=== PATIENT | female | born 1940 | race Caucasian/White ===

== ENCOUNTER 2020-10-20 16:28 | Inpatient (IN) | payer MEDICARE, OTHER ==
--- NOTE | 2020-10-20 16:56 | EDM.PDOC ---
ED HPI GENERAL MEDICAL PROBLEM - General Stated Complaint: FELL Time Seen by Provider: 10/20/20 16:55 Source of Information: Reports: Patient History Limitations: Reports: No Limitations - History of Present Illness INITIAL COMMENTS - FREE TEXT/NARRATIVE: Patient comes emergency department today from home by ambulance with concerns of a fall and laying on the floor for anywhere from 3 to 4 days. This patient lives at home alone. Approximately 3 to 4 days ago she was in the garage when she was standing up trying to put a new light bulb into a light. When she fell. She did not strike her head. She had no loss of consciousness. She has no head neck or back pain. She was unable to get up off the ground after the fall. She crawled into the house and is laid on the floor for the past 3 to 4 days. She was incontinent of urine and stool. Family had not heard from her so they went to check on her and found her laying on the floor incontinent of urine and stool in the house. Ambulance was summoned and she was brought to the emergency department. Upon arrival the patient complains of a little bit of pain in the back of the head and wonders if she did not strike her head when she hit the ground. She has no headache blurry vision. She denies any neck pain. No visual acuity changes. She complains of pain in her chest with deep breath and movement. No notes of breath or difficulty breathing. No cough or congestion. No fever no chills. She denies abdominal pain. Although she has had a chronic wound in her umbilicus that has been healing for 2 to 3 years. She denies any paresthesias of her upper or lower extremities. She denies any pain in her back. She denies any hematuria dysuria or urinary frequency. NO COVID exposure no COVID symptoms. Bilateral Chest Pain Score (Numeric/FACES): 7 - Related Data Allergies Allergy/AdvReac Type Severity Reaction Status Date / Time aspirin Allergy Nose Bleeds Verified 09/18/16 06:57 Home Meds: Home Meds FLUoxetine [PROzac] 40 mg PO DAILY 09/12/16 [History] Ibuprofen 200 mg PO DAILY PRN 09/12/16 [History] Multivitamin [Daily Multiple Vitamin] 1 tab PO DAILY 09/12/16 [History] Simvastatin [Zocor] 40 mg PO BEDTIME 09/12/16 [History] metFORMIN HCl [Metformin HCl] 850 mg PO BID 09/12/16 [History] Cyanocobalamin (Vitamin B-12) [B-12] 1,000 mcg PO DAILY 10/20/20 [History] Diclofenac Sodium [Voltaren] 75 mg PO BID PRN 10/20/20 [History] Metoprolol Succinate [Toprol XL 100mg] 100 mg PO DAILY 10/20/20 [History] Multivitamin [Multi-Day Vitamins] 1 tab PO DAILY 10/20/20 [History] lisinopriL [Lisinopril] 10 mg PO DAILY 10/20/20 [History] Past Medical History HEENT History: Reports: Cataract, Impaired Vision Cardiovascular History: Reports: High Cholesterol Respiratory History: Reports: Other (See Below) Other Respiratory History: EMPHYSEMA Gastrointestinal History: Reports: Colon Polyp, Diverticulosis, Hemorrhoids Genitourinary History: Reports: None NP History: Reports: Musculoskeletal History: Reports: Fracture, Osteoporosis Other Musculoskeletal History: HX R FOOT FX Neurological History: Reports: Neuropathy, Diabetic Psychiatric History: Reports: Anxiety, Depression Endocrine/Metabolic History: Reports: Diabetes, Type II, Obesity/BMI 30+ Other Hematologic History: VIT D DEFICIENCY Oncologic (Cancer) History: Reports: None - Past Surgical History Female Surgical History: Reports: Tubal Ligation Other Musculoskeletal Surgeries/Procedures:: UMBILICAL HERNIA REPAIR Social & Family History - Caffeine Use Caffeine Use: Reports: Coffee ED ROS GENERAL - Review of Systems Review Of Systems: Comprehensive ROS is negative, except as noted in HPI. ED EXAM, GENERAL - Physical Exam Exam: See Below Free Text/Narrative:: She is incontinent of urine and stool on arrival. Exam Limited By: No Limitations General Appearance: Alert, WD/WN, No Apparent Distress Eye Exam: Bilateral Eye: EOMI, PERRL Ears: Normal External Exam, Normal TMs Nose: Normal Inspection Throat/Mouth: No: Normal Inspection (Noted in the lip section), Normal Lips (Her lips are very dried and cracked with quite a bit of dried blood on them. Her oromucosa is very dry as well. There is no bleeding in the oropharynx.) Head: Normocephalic. No: Atraumatic (She has a small hematoma on the posterior aspect of the skull. No crepitus bony deformities.), Facial Swelling, Facial Tenderness, Sinus Tenderness Neck: Normal Inspection, Supple, Non-Tender, Full Range of Motion, Other (Patient did have a c-collar in place upon arrival. Palpation on the posterior midline spine under the c-collar does not elicit any bony deformity step-offs or point tenderness. Patient denies any neck pain. She is able to flex and extend and rotate without any pain. She has no paresthesias. The neck was cleared with Nexus criteria.). No: Tender Lateral, Tender Midline Respiratory/Chest: No Respiratory Distress, Lungs Clear, Normal Breath Sounds. No: Chest Non-Tender (She does have some generalized tenderness along the sternum on palpation as well as the lateral aspects in the mid axillary line of the bilateral chest. There is no subcutaneous emphysema. No bruising ecchymosis or bony deformity. There is no flail segments.) Cardiovascular: Normal Peripheral Pulses, Regular Rate, Rhythm, Tachycardia Peripheral Pulses: 2+: Radial (L), Radial (R), Posterior Tibial (L), Posterior Tibial (R), Dorsalis Pedis (L), Dorsalis Pedis (R) GI/Abdominal: Normal Bowel Sounds, Soft, Non-Tender. No: Other (Her umbilicus has an area of excoriation and what appears to be a type of yeast infection on the superficial aspect of the umbilicus. There is also some tissue granulation in the central canal of the umbilicus that is nonerythematous. There is no discharge. There is no swelling or exudate. No smell.) Back Exam: Normal Inspection, Full Range of Motion, Other (There is no bruising swelling ecchymosis bony deformities or step-offs or signs of trauma the posterior aspect.). No: CVA Tenderness (L), CVA Tenderness (R), Paraspinal Tenderness, Vertebral Tenderness Extremities: Normal Range of Motion, Normal Capillary Refill. No: Normal Inspection (The patient has quite a bit of bruising on the left elbow left shoulder left hip lateral and anterior aspect bruising to the right hip and right elbow as well. This is in multiple stages of healing.) Neurological: Alert, Oriented, CN II-XII Intact, Normal Cognition, Normal Reflexes, No Motor/Sensory Deficits Psychiatric: Normal Affect, Normal Mood Skin Exam: Dry, Intact, Cool, Pallor Course - Vital Signs Last Recorded V/S: Last Vital Signs Temp 96.9 F 10/20/20 22:00 Pulse 90 10/20/20 22:00 Resp 18 10/20/20 22:00 BP 110/60 10/20/20 22:00 Pulse Ox 91 L 10/20/20 22:00 - Orders/Labs/Meds Orders: Active Orders 24 hr Category Date Time Status CULTURE URINE [RM] Stat Lab 10/20/20 17:45 Received MYOGLOBIN, URINE Stat Lab 10/20/20 17:45 Received Medication Orders Acetaminophen (Tylenol) 650 mg PO Q4H PRN PRN Reason: Pain (Mild 1-3)/fever Last Admin: 10/20/20 21:39 Dose: 650 mg Documented by: ABEL Fluoxetine HCl (Prozac) 40 mg PO DAILY [facility] Lactated Ringer's (Ringers, Lactated) 1,000 mls @ 100 mls/hr IV ASDIRECTED [facility] Last Admin: 10/20/20 21:12 Dose: 100 mls/hr Documented by: ABEL Lisinopril (Prinivil) 10 mg PO DAILY [facility] Metoprolol Succinate (Toprol Xl) 100 mg PO DAILY [facility] Labs: Laboratory Tests 10/20/20 10/20/20 10/20/20 Range/Units 16:46 17:03 17:20 WBC 13.3 H (4.0-10.0) x10^3/uL RBC 4.38 (4.00-5.50) x10^6/uL Hgb 13.2 (12.0-16.0) g/dL Hct 39.2 (33.0-47.0) % MCV 89.5 (78.0-93.0) fL MCH 30.1 (26.0-32.0) pg MCHC 33.7 (32.0-36.0) g/dL RDW Coeff of Kina 12.7 (10.0-15.0) % Plt Count 240 (130-400) x10^3/uL Add Manual Diff Yes Neutrophils % (Manual) 88 H (50-80) % Band Neutrophils % 2 (0-6) % Lymphocytes % (Manual) 4 L (25-50) % Monocytes % (Manual) 6 (2-11) % Platelet Estimate Adequate PT (9.5-12.3) SEC INR (2.0-3.5) APTT (25.6-32.8) SEC Sodium (136-145) mmol/L Potassium (3.5-5.1) mmol/L Chloride (98-107) mmol/L Carbon Dioxide (21-32) mmol/L Anion Gap (5-15) mmol/L BUN (7-18) mg/dL Creatinine (0.55-1.02) mg/dL Est Cr Clr Drug Dosing Estimated GFR (MDRD) Glucose (74-106) mg/dL POC Glucose 162 H (74-106) mg/dL Lactic Acid (0.4-2.0) mmol/L Calcium (8.5-10.1) mg/dL Corrected Calcium (8.5-10.1) mg/dL Magnesium (1.8-2.4) mg/dL Total Bilirubin (0.2-1.0) mg/dL AST (15-37) U/L ALT (14-59) U/L Alkaline Phosphatase (46-116) U/L Creatine Kinase (26-192) U/L Troponin I (<=0.056) ng/mL C-Reactive Protein (<=0.9) mg/dL Total Protein (6.4-8.2) g/dL Albumin (3.4-5.0) g/dL Globulin Albumin/Globulin Ratio Lipase (73-393) U/L Urine Color (YELLOW) Urine Appearance (CLEAR) Urine pH (5.0-8.0) Ur Specific [place] Urine Protein (NEGATIVE) mg/dL Urine Glucose (UA) (NEGATIVE) mg/dL Urine Ketones (NEGATIVE) mg/dL Urine Occult Blood (NEGATIVE) Urine Nitrite (NEGATIVE) Urine Bilirubin (NEGATIVE) Urine Urobilinogen (0.2) EU/dL Ur Leukocyte Esterase (NEGATIVE) U Hyaline Cast (Auto) Urine RBC (NOT SEEN) /HPF Urine WBC (NOT SEEN) /HPF Ur Squamous Epith Cells (NEGATIVE) /HPF Urine Bacteria (NEGATIVE) /HPF Urine Mucus (NEGATIVE) /LPF SARS CoV-2 RNA Rapid YAMILE Negative (NEGATIVE) 10/20/20 10/20/20 10/20/20 Range/Units 17:20 17:20 17:20 WBC (4.0-10.0) x10^3/uL RBC (4.00-5.50) x10^6/uL Hgb (12.0-16.0) g/dL Hct (33.0-47.0) % MCV (78.0-93.0) fL MCH (26.0-32.0) pg MCHC (32.0-36.0) g/dL RDW Coeff of Kina (10.0-15.0) % Plt Count (130-400) x10^3/uL Add Manual Diff Neutrophils % (Manual) (50-80) % Band Neutrophils % (0-6) % Lymphocytes % (Manual) (25-50) % Monocytes % (Manual) (2-11) % Platelet Estimate PT 11.2 (9.5-12.3) SEC INR 1.0 L (2.0-3.5) APTT 23.7 L (25.6-32.8) SEC Sodium 145 (136-145) mmol/L Potassium 3.7 (3.5-5.1) mmol/L Chloride 105 (98-107) mmol/L Carbon Dioxide 27 (21-32) mmol/L Anion Gap 16.7 H (5-15) mmol/L BUN 50 H (7-18) mg/dL Creatinine 0.8 (0.55-1.02) mg/dL Est Cr Clr Drug Dosing TNP Estimated GFR (MDRD) > 60 Glucose 192 H (74-106) mg/dL POC Glucose (74-106) mg/dL Lactic Acid 1.4 (0.4-2.0) mmol/L Calcium 8.3 L (8.5-10.1) mg/dL Corrected Calcium 9.26 (8.5-10.1) mg/dL Magnesium 1.6 L (1.8-2.4) mg/dL Total Bilirubin 0.8 (0.2-1.0) mg/dL AST 62 H (15-37) U/L ALT 73 H (14-59) U/L Alkaline Phosphatase 75 (46-116) U/L Creatine Kinase 1496 H* (26-192) U/L Troponin I 0.056 (<=0.056) ng/mL C-Reactive Protein 14.2 H (<=0.9) mg/dL Total Protein 6.5 (6.4-8.2) g/dL Albumin 2.8 L (3.4-5.0) g/dL Globulin 3.7 Albumin/Globulin Ratio 0.76 Lipase 82 (73-393) U/L Urine Color (YELLOW) Urine Appearance (CLEAR) Urine pH (5.0-8.0) Ur Specific [place] Urine Protein (NEGATIVE) mg/dL Urine Glucose (UA) (NEGATIVE) mg/dL Urine Ketones (NEGATIVE) mg/dL Urine Occult Blood (NEGATIVE) Urine Nitrite (NEGATIVE) Urine Bilirubin (NEGATIVE) Urine Urobilinogen (0.2) EU/dL Ur Leukocyte Esterase (NEGATIVE) U Hyaline Cast (Auto) Urine RBC (NOT SEEN) /HPF Urine WBC (NOT SEEN) /HPF Ur Squamous Epith Cells (NEGATIVE) /HPF Urine Bacteria (NEGATIVE) /HPF Urine Mucus (NEGATIVE) /LPF SARS CoV-2 RNA Rapid YAMILE (NEGATIVE) 10/20/20 Range/Units 17:45 WBC (4.0-10.0) x10^3/uL RBC (4.00-5.50) x10^6/uL Hgb (12.0-16.0) g/dL Hct (33.0-47.0) % MCV (78.0-93.0) fL MCH (26.0-32.0) pg MCHC (32.0-36.0) g/dL RDW Coeff of Kina (10.0-15.0) % Plt Count (130-400) x10^3/uL Add Manual Diff Neutrophils % (Manual) (50-80) % Band Neutrophils % (0-6) % Lymphocytes % (Manual) (25-50) % Monocytes % (Manual) (2-11) % Platelet Estimate PT (9.5-12.3) SEC INR (2.0-3.5) APTT (25.6-32.8) SEC Sodium (136-145) mmol/L Potassium (3.5-5.1) mmol/L Chloride (98-107) mmol/L Carbon Dioxide (21-32) mmol/L Anion Gap (5-15) mmol/L BUN (7-18) mg/dL Creatinine (0.55-1.02) mg/dL Est Cr Clr Drug Dosing Estimated GFR (MDRD) Glucose (74-106) mg/dL POC Glucose (74-106) mg/dL Lactic Acid (0.4-2.0) mmol/L Calcium (8.5-10.1) mg/dL Corrected Calcium (8.5-10.1) mg/dL Magnesium (1.8-2.4) mg/dL Total Bilirubin (0.2-1.0) mg/dL AST (15-37) U/L ALT (14-59) U/L Alkaline Phosphatase (46-116) U/L Creatine Kinase (26-192) U/L Troponin I (<=0.056) ng/mL C-Reactive Protein (<=0.9) mg/dL Total Protein (6.4-8.2) g/dL Albumin (3.4-5.0) g/dL Globulin Albumin/Globulin Ratio Lipase (73-393) U/L Urine Color Yellow (YELLOW) Urine Appearance Slightly cloudy H (CLEAR) Urine pH 6.0 (5.0-8.0) Ur Specific [place] >=1.030 Urine Protein 100 H (NEGATIVE) mg/dL Urine Glucose (UA) Negative (NEGATIVE) mg/dL Urine Ketones 80 H (NEGATIVE) mg/dL Urine Occult Blood Moderate H (NEGATIVE) Urine Nitrite Negative (NEGATIVE) Urine Bilirubin Moderate H (NEGATIVE) Urine Urobilinogen 0.2 (0.2) EU/dL Ur Leukocyte Esterase Trace H (NEGATIVE) U Hyaline Cast (Auto) Many Urine RBC 5-10 H (NOT SEEN) /HPF Urine WBC 0-5 (NOT SEEN) /HPF Ur Squamous Epith Cells Many H (NEGATIVE) /HPF Urine Bacteria Not seen (NEGATIVE) /HPF Urine Mucus Rare H (NEGATIVE) /LPF SARS CoV-2 RNA Rapid YAMILE (NEGATIVE) Meds: Medications Generic Name Dose Route Start Last Admin Trade Name Terry PRN Reason Stop Dose Admin Acetaminophen 650 mg 10/20/20 20:43 10/20/20 21:39 Tylenol PO 650 mg Q4H PRN Administration Pain (Mild 1-3)/fever Fluoxetine HCl 40 mg 10/21/20 08:00 Prozac PO DAILY [facility] Lactated Ringer's 1,000 mls @ 100 mls/hr 10/20/20 21:00 10/20/20 21:12 Ringers, Lactated IV 100 mls/hr ASDIRECTED [facility] Administration Lisinopril 10 mg 10/21/20 08:00 Prinivil PO DAILY [facility] Metoprolol Succinate 100 mg 10/21/20 08:00 Toprol Xl PO DAILY [facility] Discontinued Medications Generic Name Dose Route Start Last Admin Trade Name Terry PRN Reason Stop Dose Admin Lactated Ringer's 1,000 mls @ 150 mls/hr 10/20/20 17:15 10/20/20 17:35 Ringers, Lactated IV 150 mls/hr ASDIRECTED [facility] Administration Metoprolol Tartrate 25 mg 10/20/20 20:06 10/20/20 20:09 Lopressor PO 10/20/20 20:07 25 mg NOW STA Administration - Radiology Interpretation Free Text/Narrative:: CT of the head per radiology shows no acute intracranial findings. - Re-Assessments/Exams Free Text/Narrative Re-Assessment/Exam: 10/21/20 Patient initially was given a liter bolus of normal saline from the ambulance. I then started lactated Ringer's at 150 mils an hour. Laboratory evaluation was completed. C-spine was cleared with Nexus criteria she did not have any neck pain. Laboratory evaluation shows a WBC of 13.3, CMP with a BUN of 50 and surprisingly a creatinine of 0.8 and an anion gap of 16.7. Glucose of 192. Magnesium 1.6. Mild elevation of AST and ALT with a normal T bili. Creatinine kinase at 1496. Troponin 0 0.056. She did have an EKG with that was completed upon arrival. She had no ST elevation or depression when reviewed extemporaneously by myself. She does not have any chest pain. Although this troponin is within the normal limits this is most likely due to the rhabdomyolysis that she has from the laying on the floor that she has done for the past couple of days. CRP is 14.2 with a normal lactic acid at 1.4. This is most likely inflammatory response due to the laying on the ground for the past couple of days. Urinalysis shows some protein ketones which is most likely due to her poor oral intake over the past couple of days. She also has some blood in her urine which is most likely due to the rhabdomyolysis. Urine myoglobin is pending. Covid test is negative for admission. Due to the patient deconditioning state after the fall and the presence of rhabdo. I called and spoke with Dr. Rosado HPI ER COURSE findings and concerns were relayed to her verbally over the phone. Her questions were answered and she accepted the patient in admission to the floor. She did have some tachycardia while in the ED that did not resolve with fluid and she is clearly dehydrated but she has also not taken her metoprolol while laying on the floor and may be going through some B Rohan withdrawal as well. Metoprolol Tartrate 25mg PO given in the ED as well. Departure - Departure Time of Disposition: 18:30 Disposition: Admitted As Inpatient 65 Clinical Impression: Dehydration Rhabdomyolysis Qualifiers: Rhabdomyolysis type: traumatic Encounter type: initial encounter Qualified Code(s): T79.6XXA - Traumatic ischemia of muscle, initial encounter Fall with injury Qualifiers: Encounter type: initial encounter Qualified Code(s): W19.XXXA - Unspecified fall, initial encounter - Discharge Information Sepsis Event Note (ED) - Focused Exam Vital Signs: Vital Signs Temp Pulse Resp BP Pulse Ox 10/20/20 16:30 97.2 F 112 H 24 H 194/105 H 93 L - My Orders Last 24 Hours: My Active Orders 10/20/20 17:45 CULTURE URINE [RM] Stat MYOGLOBIN, URINE Stat - Assessment/Plan Last 24 Hours: My Active Orders 10/20/20 17:45 CULTURE URINE [RM] Stat MYOGLOBIN, URINE Stat
[2020-10-20] MEDS ORDERED: Lactated Ringers 1,000 ML IV SCH ×2 (17:15→21:00)
[2020-10-20 17:45] LABS: PTT,PARTIAL THROMBOPLSTIN TIME 23.7 SEC (25.6-32.8)
[2020-10-20 17:59] LABS: ANION GAP 16.7 mmol/L (5-15); CHLORIDE,CL 105 mmol/L (98-107); SODIUM,NA 145 mmol/L (136-145)
--- NOTE | 2020-10-20 18:25 | CT ---
[id number] CT/CT Head WO IV EXAM: CT Head WO IV CLINICAL DATA: FALL HEAD INJURY COMPARISON STUDY: None FINDINGS: No intracranial hemorrhage, extra-axial fluid collection, mass, or acute ischemia. Generalized parenchymal atrophy with scattered areas of nonspecific white matter disease, commonly seen as sequela of chronic microvascular ischemia. Soft tissues are unremarkable. Mild mucosal thickening without evidence of aggressive sinusitis.. IMPRESSION: No acute intracranial findings. Last Tanner DO 10/20/20 1824 Thank you for allowing us to participate in the care of your patient.
[2020-10-20] MEDS ORDERED: Metoprolol Tartrate 25 MG Tab PO STA (20:06)
--- NOTE | 2020-10-20 20:51 | PCM.HP.2 ---
H&P History of Present Illness - General Date of Service: 10/20/20 Admit Problem/Dx: Admission Diagnosis/Problem Admission Diagnosis/Problem Rhabdomyolysis Source of Information: Patient History Limitations: Reports: No Limitations - History of Present Illness Initial Comments - Free Text/Narative: Ms. Zamora is an 80 yo female with PMH of HTN, emphysema, DM, hyperlipidemia, B12 deficiency, depression, and anxiety who was brought to the ER via EMS for evaluation following a fall a few days ago. The patient states that she fell 1 week ago but her kids stated that they had not heard from her for 3 days. She states she was in the garage changing a lightbulb when she fell backwards off her ladder. She was on the bottom rung when she fell. She did not lose consciousness. She was able to crawl from the garage into her house but then was not able to get up. When her kids had not heard from her for 3 days, then called the ambulance to go check on her. She was brought to the ER for further evaluation. She is having discomfort in both sides of her chest, which she feels is from the fall and the crawling. No internal chest pain and no shortness of breath. She has multiple bruises but has no other pain. She has not had any headaches. No unilateral weakness, numbness, or tingling. No neck pain or stiffness. Bilateral Chest Pain Score (Numeric/FACES): 7 - Related Data Allergies/Adverse Reactions: Allergies Allergy/AdvReac Type Severity Reaction Status Date / Time aspirin Allergy Nose Bleeds Verified 09/18/16 06:57 Home Medications: Home Meds FLUoxetine [PROzac] 40 mg PO DAILY 09/12/16 [History] Ibuprofen 200 mg PO DAILY PRN 09/12/16 [History] Multivitamin [Daily Multiple Vitamin] 1 tab PO DAILY 09/12/16 [History] Simvastatin [Zocor] 40 mg PO BEDTIME 09/12/16 [History] metFORMIN HCl [Metformin HCl] 850 mg PO BID 09/12/16 [History] Cyanocobalamin (Vitamin B-12) [B-12] 1,000 mcg PO DAILY 10/20/20 [History] Diclofenac Sodium [Voltaren] 75 mg PO BID PRN 10/20/20 [History] Metoprolol Succinate [Toprol XL 100mg] 100 mg PO DAILY 10/20/20 [History] Multivitamin [Multi-Day Vitamins] 1 tab PO DAILY 10/20/20 [History] lisinopriL [Lisinopril] 10 mg PO DAILY 10/20/20 [History] Past Medical History HEENT History: Reports: Cataract, Impaired Vision Cardiovascular History: Reports: High Cholesterol, Hypertension Respiratory History: Reports: COPD Gastrointestinal History: Reports: Colon Polyp, Diverticulosis, Hemorrhoids Genitourinary History: Reports: None 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: Musculoskeletal History: Reports: Fracture, Osteoporosis Other Musculoskeletal History: HX R FOOT FX Neurological History: Reports: Neuropathy, Diabetic Psychiatric History: Reports: Anxiety, Depression Endocrine/Metabolic History: Reports: Diabetes, Type II, Obesity/BMI 30+ Hematologic History: Reports: B12 Deficiency Other Hematologic History: VIT D DEFICIENCY Oncologic (Cancer) History: Reports: None Dermatologic History: Reports: None - Past Surgical History GI Surgical History: Reports: Colonoscopy, Hernia, Abdominal (umbilical) Female Surgical History: Reports: Tubal Ligation Neurological Surgical History: Reports: None Other Musculoskeletal Surgeries/Procedures:: UMBILICAL HERNIA REPAIR Social & Family History - Family History Family Medical History: No Pertinent Family History (patient is adopted; mom from old age and dad from alcohol abuse) - Tobacco Use Tobacco Use Status *Q: Former Tobacco User Second Hand Smoke Exposure: No - Caffeine Use Caffeine Use: Reports: Coffee - Alcohol Use Alcohol Use History: No Alcohol Use in Last Twelve Months: No - Recreational Drug Use Recreational Drug Use: No - Living Situation & Occupation Living situation: Reports: , Alone 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[employer]) H&P Review of Systems - Review of Systems: Review Of Systems: See Below General: Reports: No Symptoms HEENT: Reports: No Symptoms Pulmonary: Reports: No Symptoms Cardiovascular: Reports: No Symptoms Gastrointestinal: Reports: No Symptoms Genitourinary: Reports: No Symptoms Musculoskeletal: Reports: Muscle Pain Skin: Reports: No Symptoms Psychiatric: Reports: No Symptoms Neurological: Reports: No Symptoms Exam - Exam Exam: See Below - Vital Signs Vital Signs: Last Vital Signs Temp 35.8 C L 10/20/20 20:43 Pulse 119 H 10/20/20 20:43 Resp 18 10/20/20 20:43 BP 131/73 10/20/20 20:43 Pulse Ox 95 10/20/20 20:43 Weight: 72.121 kg - Exam General: Alert, Oriented, Cooperative HEENT: Conjunctiva Clear, Hearing Intact, Mucosa Moist & [place], Posterior Pharynx Clear, Pupils Equal, Pupils Reactive, TMs Clear Neck: Supple, Trachea Midline, Full Range of Motion, Other (no midline or paraspinal muscle tenderness to palpation). No: Lymphadenopathy, Thyromegaly Lungs: Clear to Auscultation, Normal Respiratory Effort Cardiovascular: Regular Rhythm, Normal S1, Normal S2, Tachycardia, Other (bilateral chest wall tenderness to palpation without any overlying ecchymosis and no palpable crepitus or deformity) GI/Abdominal Exam: Normal Bowel Sounds, Soft, Non-Tender, No Organomegaly, No Distention, No Mass Extremities: Normal Range of Motion, Non-Tender, No Pedal Edema, Normal Capillary Refill Peripheral Pulses: 2+: Radial (L), Radial (R) Skin: Warm, Dry, Intact, Ecchymosis, Wound (early stage pressure wound) Neuro Extensive - Mental Status: Alert, Normal Mood/Affect, Normal Cognition, Disorientation to Time - Patient Data Lab Results Last 24 hrs: Laboratory Results - last 24 hr 10/20/20 10/20/20 10/20/20 Range/Units 16:46 17:03 17:20 WBC 13.3 H (4.0-10.0) x10^3/uL RBC 4.38 (4.00-5.50) x10^6/uL Hgb 13.2 (12.0-16.0) g/dL Hct 39.2 (33.0-47.0) % MCV 89.5 (78.0-93.0) fL MCH 30.1 (26.0-32.0) pg MCHC 33.7 (32.0-36.0) g/dL RDW Coeff of Kina 12.7 (10.0-15.0) % Plt Count 240 (130-400) x10^3/uL Add Manual Diff Yes Neutrophils % (Manual) 88 H (50-80) % Band Neutrophils % 2 (0-6) % Lymphocytes % (Manual) 4 L (25-50) % Monocytes % (Manual) 6 (2-11) % Platelet Estimate Adequate PT (9.5-12.3) SEC INR (2.0-3.5) APTT (25.6-32.8) SEC Sodium (136-145) mmol/L Potassium (3.5-5.1) mmol/L Chloride (98-107) mmol/L Carbon Dioxide (21-32) mmol/L Anion Gap (5-15) mmol/L BUN (7-18) mg/dL Creatinine (0.55-1.02) mg/dL Est Cr Clr Drug Dosing Estimated GFR (MDRD) Glucose (74-106) mg/dL POC Glucose 162 H (74-106) mg/dL Lactic Acid (0.4-2.0) mmol/L Calcium (8.5-10.1) mg/dL Corrected Calcium (8.5-10.1) mg/dL Magnesium (1.8-2.4) mg/dL Total Bilirubin (0.2-1.0) mg/dL AST (15-37) U/L ALT (14-59) U/L Alkaline Phosphatase (46-116) U/L Creatine Kinase (26-192) U/L Troponin I (<=0.056) ng/mL C-Reactive Protein (<=0.9) mg/dL Total Protein (6.4-8.2) g/dL Albumin (3.4-5.0) g/dL Globulin Albumin/Globulin Ratio Lipase (73-393) U/L Urine Color (YELLOW) Urine Appearance (CLEAR) Urine pH (5.0-8.0) Ur Specific Coldiron Urine Protein (NEGATIVE) mg/dL Urine Glucose (UA) (NEGATIVE) mg/dL Urine Ketones (NEGATIVE) mg/dL Urine Occult Blood (NEGATIVE) Urine Nitrite (NEGATIVE) Urine Bilirubin (NEGATIVE) Urine Urobilinogen (0.2) EU/dL Ur Leukocyte Esterase (NEGATIVE) U Hyaline Cast (Auto) Urine RBC (NOT SEEN) /HPF Urine WBC (NOT SEEN) /HPF Ur Squamous Epith Cells (NEGATIVE) /HPF Urine Bacteria (NEGATIVE) /HPF Urine Mucus (NEGATIVE) /LPF SARS CoV-2 RNA Rapid YAMILE Negative (NEGATIVE) 10/20/20 10/20/20 10/20/20 Range/Units 17:20 17:20 17:20 WBC (4.0-10.0) x10^3/uL RBC (4.00-5.50) x10^6/uL Hgb (12.0-16.0) g/dL Hct (33.0-47.0) % MCV (78.0-93.0) fL MCH (26.0-32.0) pg MCHC (32.0-36.0) g/dL RDW Coeff of Kina (10.0-15.0) % Plt Count (130-400) x10^3/uL Add Manual Diff Neutrophils % (Manual) (50-80) % Band Neutrophils % (0-6) % Lymphocytes % (Manual) (25-50) % Monocytes % (Manual) (2-11) % Platelet Estimate PT 11.2 (9.5-12.3) SEC INR 1.0 L (2.0-3.5) APTT 23.7 L (25.6-32.8) SEC Sodium 145 (136-145) mmol/L Potassium 3.7 (3.5-5.1) mmol/L Chloride 105 (98-107) mmol/L Carbon Dioxide 27 (21-32) mmol/L Anion Gap 16.7 H (5-15) mmol/L BUN 50 H (7-18) mg/dL Creatinine 0.8 (0.55-1.02) mg/dL Est Cr Clr Drug Dosing TNP Estimated GFR (MDRD) > 60 Glucose 192 H (74-106) mg/dL POC Glucose (74-106) mg/dL Lactic Acid 1.4 (0.4-2.0) mmol/L Calcium 8.3 L (8.5-10.1) mg/dL Corrected Calcium 9.26 (8.5-10.1) mg/dL Magnesium 1.6 L (1.8-2.4) mg/dL Total Bilirubin 0.8 (0.2-1.0) mg/dL AST 62 H (15-37) U/L ALT 73 H (14-59) U/L Alkaline Phosphatase 75 (46-116) U/L Creatine Kinase 1496 H* (26-192) U/L Troponin I 0.056 (<=0.056) ng/mL C-Reactive Protein 14.2 H (<=0.9) mg/dL Total Protein 6.5 (6.4-8.2) g/dL Albumin 2.8 L (3.4-5.0) g/dL Globulin 3.7 Albumin/Globulin Ratio 0.76 Lipase 82 (73-393) U/L Urine Color (YELLOW) Urine Appearance (CLEAR) Urine pH (5.0-8.0) Ur Specific [place] Urine Protein (NEGATIVE) mg/dL Urine Glucose (UA) (NEGATIVE) mg/dL Urine Ketones (NEGATIVE) mg/dL Urine Occult Blood (NEGATIVE) Urine Nitrite (NEGATIVE) Urine Bilirubin (NEGATIVE) Urine Urobilinogen (0.2) EU/dL Ur Leukocyte Esterase (NEGATIVE) U Hyaline Cast (Auto) Urine RBC (NOT SEEN) /HPF Urine WBC (NOT SEEN) /HPF Ur Squamous Epith Cells (NEGATIVE) /HPF Urine Bacteria (NEGATIVE) /HPF Urine Mucus (NEGATIVE) /LPF SARS CoV-2 RNA Rapid YAMILE (NEGATIVE) 10/20/20 Range/Units 17:45 WBC (4.0-10.0) x10^3/uL RBC (4.00-5.50) x10^6/uL Hgb (12.0-16.0) g/dL Hct (33.0-47.0) % MCV (78.0-93.0) fL MCH (26.0-32.0) pg MCHC (32.0-36.0) g/dL RDW Coeff of Kina (10.0-15.0) % Plt Count (130-400) x10^3/uL Add Manual Diff Neutrophils % (Manual) (50-80) % Band Neutrophils % (0-6) % Lymphocytes % (Manual) (25-50) % Monocytes % (Manual) (2-11) % Platelet Estimate PT (9.5-12.3) SEC INR (2.0-3.5) APTT (25.6-32.8) SEC Sodium (136-145) mmol/L Potassium (3.5-5.1) mmol/L Chloride (98-107) mmol/L Carbon Dioxide (21-32) mmol/L Anion Gap (5-15) mmol/L BUN (7-18) mg/dL Creatinine (0.55-1.02) mg/dL Est Cr Clr Drug Dosing Estimated GFR (MDRD) Glucose (74-106) mg/dL POC Glucose (74-106) mg/dL Lactic Acid (0.4-2.0) mmol/L Calcium (8.5-10.1) mg/dL Corrected Calcium (8.5-10.1) mg/dL Magnesium (1.8-2.4) mg/dL Total Bilirubin (0.2-1.0) mg/dL AST (15-37) U/L ALT (14-59) U/L Alkaline Phosphatase (46-116) U/L Creatine Kinase (26-192) U/L Troponin I (<=0.056) ng/mL C-Reactive Protein (<=0.9) mg/dL Total Protein (6.4-8.2) g/dL Albumin (3.4-5.0) g/dL Globulin Albumin/Globulin Ratio Lipase (73-393) U/L Urine Color Yellow (YELLOW) Urine Appearance Slightly cloudy H (CLEAR) Urine pH 6.0 (5.0-8.0) Ur Specific [place] >=1.030 Urine Protein 100 H (NEGATIVE) mg/dL Urine Glucose (UA) Negative (NEGATIVE) mg/dL Urine Ketones 80 H (NEGATIVE) mg/dL Urine Occult Blood Moderate H (NEGATIVE) Urine Nitrite Negative (NEGATIVE) Urine Bilirubin Moderate H (NEGATIVE) Urine Urobilinogen 0.2 (0.2) EU/dL Ur Leukocyte Esterase Trace H (NEGATIVE) U Hyaline Cast (Auto) Many Urine RBC 5-10 H (NOT SEEN) /HPF Urine WBC 0-5 (NOT SEEN) /HPF Ur Squamous Epith Cells Many H (NEGATIVE) /HPF Urine Bacteria Not seen (NEGATIVE) /HPF Urine Mucus Rare H (NEGATIVE) /LPF SARS CoV-2 RNA Rapid YAMILE (NEGATIVE) Result Diagrams: 10/20/20 17:20 10/20/20 17:20 Sepsis Event Note - Evaluation Sepsis Screening Result: No Definite Risk - Focused Exam Vital Signs: Vital Signs Temp Temp Pulse Pulse Resp BP BP 10/20/20 20:43 35.8 C L 119 H 18 131/73 10/20/20 20:09 130 H 143/72 H 10/20/20 16:30 36.2 C 112 H 24 H 194/105 H Pulse Ox 10/20/20 20:43 95 10/20/20 20:09 10/20/20 16:30 93 L - Problem List (1) Rhabdomyolysis SNOMED Code(s): 220182396 ICD Code: M62.82 - RHABDOMYOLYSIS Status: Acute Current Visit: Yes Qualifiers: Rhabdomyolysis type: traumatic Encounter type: initial encounter Qualified Code(s): T79.6XXA - Traumatic ischemia of muscle, initial encounter (2) Dehydration SNOMED Code(s): 90560570 ICD Code: E86.0 - DEHYDRATION Status: Acute Current Visit: Yes (3) Fall with injury SNOMED Code(s): 771393254 ICD Code: W19.XXXA - UNSPECIFIED FALL, INITIAL ENCOUNTER Status: Acute Current Visit: Yes Qualifiers: Encounter type: initial encounter Qualified Code(s): W19.XXXA - Unspecified fall, initial encounter (4) Chest wall pain SNOMED Code(s): 650792998 ICD Code: R07.89 - OTHER CHEST PAIN Status: Acute Current Visit: Yes (5) Decubitus skin ulcer SNOMED Code(s): 811438182 ICD Code: L89.90 - PRESSURE ULCER OF UNSPECIFIED SITE, UNSPECIFIED STAGE Status: Acute Current Visit: Yes Qualifiers: Pressure injury location: sacral region Pressure injury stage: stage 1 Qualified Code(s): L89.151 - Pressure ulcer of sacral region, stage 1 (6) SIRS (systemic inflammatory response syndrome) SNOMED Code(s): 118026037 ICD Code: R65.10 - SIRS OF NON-INFECTIOUS ORIGIN W/O ACUTE ORGAN DYSFUNCTION Status: Acute Current Visit: Yes (7) Hypertension SNOMED Code(s): 36647922 ICD Code: I10 - ESSENTIAL (PRIMARY) HYPERTENSION Status: Chronic Current Visit: Yes Qualifiers: Hypertension type: essential hypertension Qualified Code(s): I10 - Essential (primary) hypertension (8) COPD (chronic obstructive pulmonary disease) SNOMED Code(s): 46455025 ICD Code: J44.9 - CHRONIC OBSTRUCTIVE PULMONARY DISEASE, UNSPECIFIED Status: Chronic Current Visit: Yes (9) Hyperlipidemia SNOMED Code(s): 88723880 ICD Code: E78.5 - HYPERLIPIDEMIA, UNSPECIFIED Status: Chronic Current Visit: Yes (10) Diabetes SNOMED Code(s): 59776468 ICD Code: E11.9 - TYPE 2 DIABETES MELLITUS WITHOUT COMPLICATIONS Status: Chronic Current Visit: Yes (11) Depression SNOMED Code(s): 83693305 ICD Code: F32.9 - MAJOR DEPRESSIVE DISORDER, SINGLE EPISODE, UNSPECIFIED Status: Chronic Current Visit: Yes (12) Anxiety SNOMED Code(s): 64836952 ICD Code: F41.9 - ANXIETY DISORDER, UNSPECIFIED Status: Chronic Current Visit: Yes Problem List Initiated/Reviewed/Updated: Yes Orders Last 24hrs: Active Orders 24 hr Category Date Time Status Admission Status [Patient Status] [ADT] Routine ADT 10/20/20 19:01 Active Cardiac Monitoring [RC] CONTINUOUS Care 10/20/20 20:44 Ordered Notify Provider Vital Signs [RC] ASDIRECTED Care 10/20/20 20:44 Ordered Oxygen Therapy [RC] PRN Care 10/20/20 20:43 Ordered Up With Assistance [RC] ASDIRECTED Care 10/20/20 20:43 Ordered VTE/DVT Education [RC] PER UNIT ROUTINE Care 10/20/20 20:43 Ordered Vital Signs [RC] Q4H Care 10/20/20 20:43 Ordered [employer] Diet [DIET] Diet 10/20/20 Breakfast Ordered BASIC METABOLIC PANEL,BMP [CHEM] AM Lab 10/21/20 05:11 Ordered C-REACTIVE PROTEIN [CHEM] AM Lab 10/21/20 05:11 Ordered CBC WITH AUTO DIFF [HEME] AM Lab 10/21/20 05:11 Ordered CREATINE KINASE,CK [CHEM] AM Lab 10/21/20 05:11 Ordered CULTURE URINE [RM] Stat Lab 10/20/20 17:45 Received MAGNESIUM [CHEM] AM Lab 10/21/20 05:11 Ordered MYOGLOBIN, URINE Stat Lab 10/20/20 17:45 Received Acetaminophen [TylenoL] Med 10/20/20 20:43 Ordered 650 mg PO Q4H PRN FLUoxetine [PROzac] Med 10/21/20 08:00 Ordered 40 mg PO DAILY Lactated Ringers @ 100 MLS/HR(1,000ml) Med 10/20/20 21:00 Ordered Lactated Ringers [Ringers, Lactated] 1,000 ml IV ASDIRECTED Resuscitation Status Routine Resus Stat 10/20/20 20:43 Ordered Medication Orders Acetaminophen (Tylenol) 650 mg PO Q4H PRN PRN Reason: Pain (Mild 1-3)/fever Lactated Ringer's (Ringers, Lactated) 1,000 mls @ 100 mls/hr IV ASDIRECTED ANGELIQUE Assessment/Plan Comment:: 80 yo female admitted with mild rhabdomyolysis after sustaining a fall from which she was unable to get up sometime within the past 3 days. #1 Rhabdomyolysis #2 Dehydration - Patient got 2L of IV fluids in the ER. - Given lack of significant urine output to this point, will give gentle IV fluids overnight with LR @ 100 mL/hr. - Recheck CK in the am. #3 Fall with injury #4 Chest wall pain - No major injuries from her fall. - Chest pain is clearly chest wall pain. Low risk for rib fracture based on injury and lack of bruising in that area when she has extensive bruising elsewhere. - Will reassess need for CXR in the am. - Tylenol for pain. - Will hold ibuprofen given #1. #5 Decubitus skin ulcer - Offloading measures and usual wound cares. #6 SIRS - For tachycardia and leukocytosis. - Likely secondary to #1 and #2. - Tachycardia also likely related to missing her metoprolol doses. - Patient has no s/s of infection but will monitor WBC and CRP daily to determine trends. #7 Hypertension - HR and BP elevated on admission. Will give a dose of metoprolol tartrate 25 mg. - Then resume metoprolol and lisinopril in the am. #8 COPD - Patient is not on any medications for this. - Can do nebs if she has any wheezing/shortness of breath. #9 Hyperlipidemia - In light of #1, will hold her statin. #10 Diabetes - Hold metformin. - Will check glucose QID and assess need for insulin tomorrow. #11 Depression #12 Anxiety - Continue prozac. Patient will be admitted to acute - anticipate it will take a couple of days to get her fully volume repleted and to treat her rhabdo. Code status is DNR/DNI - discussed with patient on admission. Suspect we will do lovenox for VTE prophylaxis but will first assess stability of her creatinine in the am.
[2020-10-20] MEDS: Acetaminophen 325 MG Tab PO PRN (21:39)
[2020-10-21] MEDS: FLUoxetine 20 MG Cap PO SCH (08:13)
[2020-10-21] MEDS: Metoprolol Succinate 50 MG Tab.ER PO SCH (08:13)
[2020-10-21] MEDS: Acetaminophen 325 MG Tab PO PRN ×3 (08:13→20:16)
[2020-10-21] MEDS: Lisinopril 10 MG Tab PO SCH (08:13)
[2020-10-21 08:49] LABS: ANION GAP 12.5 mmol/L (5-15)
--- NOTE | 2020-10-21 10:08 | PCM.PN ---
- General Info Date of Service: 10/21/20 Subjective Update: 80 yo female hospital day #2 admitted with rhabdomyolysis after a fall sometime in the preceding 3 days. She states she is feeling ok this morning. She is looking forward to a bath this afternoon. She has some myalgias (including in the chest wall) when she is moving around. At rest, she is having no pain. She is eating well with no vomiting. Had a normal BM this morning. No headache or neurologic symptoms. No chest pain or shortness of breath. Nurse noted some changes around her umbilicus. The patient states this is chronic and has not recently changed. There was discussion of surgery in the past and she had elected not to proceed with that. Nurse also notes changes in her groin of redness. - Review of Systems General: Reports: No Symptoms HEENT: Reports: No Symptoms Pulmonary: Reports: No Symptoms Cardiovascular: Reports: No Symptoms Gastrointestinal: Reports: No Symptoms Genitourinary: Reports: No Symptoms Musculoskeletal: Reports: No Symptoms Skin: Reports: Rash Neurological: Reports: No Symptoms - Patient Data Vitals - Most Recent: Last Vital Signs Temp 35.8 C L 10/21/20 06:00 Pulse 102 H 10/21/20 08:13 Resp 20 10/21/20 06:00 BP 143/71 H 10/21/20 08:13 Pulse Ox 90 L 10/21/20 06:00 Weight - Most Recent: 68.311 kg I&O - Last 24 Hours: Intake & Output 10/20/20 10/21/20 10/21/20 22:59 06:59 14:59 Intake Total 1201 Balance 1201 Lab Results Last 24 Hours: Laboratory Results - last 24 hr 10/20/20 10/20/20 10/20/20 Range/Units 16:46 17:03 17:20 WBC 13.3 H (4.0-10.0) x10^3/uL RBC 4.38 (4.00-5.50) x10^6/uL Hgb 13.2 (12.0-16.0) g/dL Hct 39.2 (33.0-47.0) % MCV 89.5 (78.0-93.0) fL MCH 30.1 (26.0-32.0) pg MCHC 33.7 (32.0-36.0) g/dL RDW Coeff of Kina 12.7 (10.0-15.0) % Plt Count 240 (130-400) x10^3/uL Neut % (Auto) (50.0-80.0) % Lymph % (Auto) (25.0-50.0) % [place] % (Auto) (2.0-11.0) % Eos % (Auto) (0.0-4.0) % Baso % (Auto) (0.2-1.2) % Add Manual Diff Yes Neutrophils % (Manual) 88 H (50-80) % Band Neutrophils % 2 (0-6) % Lymphocytes % (Manual) 4 L (25-50) % Monocytes % (Manual) 6 (2-11) % Platelet Estimate Adequate PT (9.5-12.3) SEC INR (2.0-3.5) APTT (25.6-32.8) SEC Sodium (136-145) mmol/L Potassium (3.5-5.1) mmol/L Chloride (98-107) mmol/L Carbon Dioxide (21-32) mmol/L Anion Gap (5-15) mmol/L BUN (7-18) mg/dL Creatinine (0.55-1.02) mg/dL Est Cr Clr Drug Dosing Estimated GFR (MDRD) Glucose (74-106) mg/dL POC Glucose 162 H (74-106) mg/dL Lactic Acid (0.4-2.0) mmol/L Calcium (8.5-10.1) mg/dL Corrected Calcium (8.5-10.1) mg/dL Magnesium (1.8-2.4) mg/dL Total Bilirubin (0.2-1.0) mg/dL AST (15-37) U/L ALT (14-59) U/L Alkaline Phosphatase (46-116) U/L Creatine Kinase (26-192) U/L Troponin I (<=0.056) ng/mL C-Reactive Protein (<=0.9) mg/dL Total Protein (6.4-8.2) g/dL Albumin (3.4-5.0) g/dL Globulin Albumin/Globulin Ratio Lipase (73-393) U/L Urine Color (YELLOW) Urine Appearance (CLEAR) Urine pH (5.0-8.0) Ur Specific [place] Urine Protein (NEGATIVE) mg/dL Urine Glucose (UA) (NEGATIVE) mg/dL Urine Ketones (NEGATIVE) mg/dL Urine Occult Blood (NEGATIVE) Urine Nitrite (NEGATIVE) Urine Bilirubin (NEGATIVE) Urine Urobilinogen (0.2) EU/dL Ur Leukocyte Esterase (NEGATIVE) U Hyaline Cast (Auto) Urine RBC (NOT SEEN) /HPF Urine WBC (NOT SEEN) /HPF Ur Squamous Epith Cells (NEGATIVE) /HPF Urine Bacteria (NEGATIVE) /HPF Urine Mucus (NEGATIVE) /LPF SARS CoV-2 RNA Rapid YAMILE Negative (NEGATIVE) 10/20/20 10/20/20 10/20/20 Range/Units 17:20 17:20 17:20 WBC (4.0-10.0) x10^3/uL RBC (4.00-5.50) x10^6/uL Hgb (12.0-16.0) g/dL Hct (33.0-47.0) % MCV (78.0-93.0) fL MCH (26.0-32.0) pg MCHC (32.0-36.0) g/dL RDW Coeff of Kina (10.0-15.0) % Plt Count (130-400) x10^3/uL Neut % (Auto) (50.0-80.0) % Lymph % (Auto) (25.0-50.0) % [place] % (Auto) (2.0-11.0) % Eos % (Auto) (0.0-4.0) % Baso % (Auto) (0.2-1.2) % Add Manual Diff Neutrophils % (Manual) (50-80) % Band Neutrophils % (0-6) % Lymphocytes % (Manual) (25-50) % Monocytes % (Manual) (2-11) % Platelet Estimate PT 11.2 (9.5-12.3) SEC INR 1.0 L (2.0-3.5) APTT 23.7 L (25.6-32.8) SEC Sodium 145 (136-145) mmol/L Potassium 3.7 (3.5-5.1) mmol/L Chloride 105 (98-107) mmol/L Carbon Dioxide 27 (21-32) mmol/L Anion Gap 16.7 H (5-15) mmol/L BUN 50 H (7-18) mg/dL Creatinine 0.8 (0.55-1.02) mg/dL Est Cr Clr Drug Dosing TNP Estimated GFR (MDRD) > 60 Glucose 192 H (74-106) mg/dL POC Glucose (74-106) mg/dL Lactic Acid 1.4 (0.4-2.0) mmol/L Calcium 8.3 L (8.5-10.1) mg/dL Corrected Calcium 9.26 (8.5-10.1) mg/dL Magnesium 1.6 L (1.8-2.4) mg/dL Total Bilirubin 0.8 (0.2-1.0) mg/dL AST 62 H (15-37) U/L ALT 73 H (14-59) U/L Alkaline Phosphatase 75 (46-116) U/L Creatine Kinase 1496 H* (26-192) U/L Troponin I 0.056 (<=0.056) ng/mL C-Reactive Protein 14.2 H (<=0.9) mg/dL Total Protein 6.5 (6.4-8.2) g/dL Albumin 2.8 L (3.4-5.0) g/dL Globulin 3.7 Albumin/Globulin Ratio 0.76 Lipase 82 (73-393) U/L Urine Color (YELLOW) Urine Appearance (CLEAR) Urine pH (5.0-8.0) Ur Specific [place] Urine Protein (NEGATIVE) mg/dL Urine Glucose (UA) (NEGATIVE) mg/dL Urine Ketones (NEGATIVE) mg/dL Urine Occult Blood (NEGATIVE) Urine Nitrite (NEGATIVE) Urine Bilirubin (NEGATIVE) Urine Urobilinogen (0.2) EU/dL Ur Leukocyte Esterase (NEGATIVE) U Hyaline Cast (Auto) Urine RBC (NOT SEEN) /HPF Urine WBC (NOT SEEN) /HPF Ur Squamous Epith Cells (NEGATIVE) /HPF Urine Bacteria (NEGATIVE) /HPF Urine Mucus (NEGATIVE) /LPF SARS CoV-2 RNA Rapid YAMILE (NEGATIVE) 10/20/20 10/21/20 10/21/20 Range/Units 17:45 06:28 07:52 WBC 11.9 H (4.0-10.0) x10^3/uL RBC 4.11 (4.00-5.50) x10^6/uL Hgb 12.4 (12.0-16.0) g/dL Hct 37.5 (33.0-47.0) % MCV 91.2 (78.0-93.0) fL MCH 30.2 (26.0-32.0) pg MCHC 33.1 (32.0-36.0) g/dL RDW Coeff of Kina 13.3 (10.0-15.0) % Plt Count 230 (130-400) x10^3/uL Neut % (Auto) 80.2 H (50.0-80.0) % Lymph % (Auto) 7.0 L (25.0-50.0) % [place] % (Auto) 12.5 H (2.0-11.0) % Eos % (Auto) 0.0 (0.0-4.0) % Baso % (Auto) 0.3 (0.2-1.2) % Add Manual Diff Neutrophils % (Manual) (50-80) % Band Neutrophils % (0-6) % Lymphocytes % (Manual) (25-50) % Monocytes % (Manual) (2-11) % Platelet Estimate PT (9.5-12.3) SEC INR (2.0-3.5) APTT (25.6-32.8) SEC Sodium (136-145) mmol/L Potassium (3.5-5.1) mmol/L Chloride (98-107) mmol/L Carbon Dioxide (21-32) mmol/L Anion Gap (5-15) mmol/L BUN (7-18) mg/dL Creatinine (0.55-1.02) mg/dL Est Cr Clr Drug Dosing Estimated GFR (MDRD) Glucose (74-106) mg/dL POC Glucose 182 H (74-106) mg/dL Lactic Acid (0.4-2.0) mmol/L Calcium (8.5-10.1) mg/dL Corrected Calcium (8.5-10.1) mg/dL Magnesium (1.8-2.4) mg/dL Total Bilirubin (0.2-1.0) mg/dL AST (15-37) U/L ALT (14-59) U/L Alkaline Phosphatase (46-116) U/L Creatine Kinase (26-192) U/L Troponin I (<=0.056) ng/mL C-Reactive Protein (<=0.9) mg/dL Total Protein (6.4-8.2) g/dL Albumin (3.4-5.0) g/dL Globulin Albumin/Globulin Ratio Lipase (73-393) U/L Urine Color Yellow (YELLOW) Urine Appearance Slightly cloudy H (CLEAR) Urine pH 6.0 (5.0-8.0) Ur Specific [place] >=1.030 Urine Protein 100 H (NEGATIVE) mg/dL Urine Glucose (UA) Negative (NEGATIVE) mg/dL Urine Ketones 80 H (NEGATIVE) mg/dL Urine Occult Blood Moderate H (NEGATIVE) Urine Nitrite Negative (NEGATIVE) Urine Bilirubin Moderate H (NEGATIVE) Urine Urobilinogen 0.2 (0.2) EU/dL Ur Leukocyte Esterase Trace H (NEGATIVE) U Hyaline Cast (Auto) Many Urine RBC 5-10 H (NOT SEEN) /HPF Urine WBC 0-5 (NOT SEEN) /HPF Ur Squamous Epith Cells Many H (NEGATIVE) /HPF Urine Bacteria Not seen (NEGATIVE) /HPF Urine Mucus Rare H (NEGATIVE) /LPF SARS CoV-2 RNA Rapid YAMILE (NEGATIVE) 10/21/20 Range/Units 07:52 WBC (4.0-10.0) x10^3/uL RBC (4.00-5.50) x10^6/uL Hgb (12.0-16.0) g/dL Hct (33.0-47.0) % MCV (78.0-93.0) fL MCH (26.0-32.0) pg MCHC (32.0-36.0) g/dL RDW Coeff of Kina (10.0-15.0) % Plt Count (130-400) x10^3/uL Neut % (Auto) (50.0-80.0) % Lymph % (Auto) (25.0-50.0) % [place] % (Auto) (2.0-11.0) % Eos % (Auto) (0.0-4.0) % Baso % (Auto) (0.2-1.2) % Add Manual Diff Neutrophils % (Manual) (50-80) % Band Neutrophils % (0-6) % Lymphocytes % (Manual) (25-50) % Monocytes % (Manual) (2-11) % Platelet Estimate PT (9.5-12.3) SEC INR (2.0-3.5) APTT (25.6-32.8) SEC Sodium 144 (136-145) mmol/L Potassium 3.5 (3.5-5.1) mmol/L Chloride 106 (98-107) mmol/L Carbon Dioxide 29 (21-32) mmol/L Anion Gap 12.5 (5-15) mmol/L BUN 56 H (7-18) mg/dL Creatinine 1.1 H (0.55-1.02) mg/dL Est Cr Clr Drug Dosing 35.36 Estimated GFR (MDRD) 48 Glucose 197 H (74-106) mg/dL POC Glucose (74-106) mg/dL Lactic Acid (0.4-2.0) mmol/L Calcium 8.6 (8.5-10.1) mg/dL Corrected Calcium (8.5-10.1) mg/dL Magnesium 1.7 L (1.8-2.4) mg/dL Total Bilirubin (0.2-1.0) mg/dL AST (15-37) U/L ALT (14-59) U/L Alkaline Phosphatase (46-116) U/L Creatine Kinase 838 H* (26-192) U/L Troponin I (<=0.056) ng/mL C-Reactive Protein 13.3 H (<=0.9) mg/dL Total Protein (6.4-8.2) g/dL Albumin (3.4-5.0) g/dL Globulin Albumin/Globulin Ratio Lipase (73-393) U/L Urine Color (YELLOW) Urine Appearance (CLEAR) Urine pH (5.0-8.0) Ur Specific [place] Urine Protein (NEGATIVE) mg/dL Urine Glucose (UA) (NEGATIVE) mg/dL Urine Ketones (NEGATIVE) mg/dL Urine Occult Blood (NEGATIVE) Urine Nitrite (NEGATIVE) Urine Bilirubin (NEGATIVE) Urine Urobilinogen (0.2) EU/dL Ur Leukocyte Esterase (NEGATIVE) U Hyaline Cast (Auto) Urine RBC (NOT SEEN) /HPF Urine WBC (NOT SEEN) /HPF Ur Squamous Epith Cells (NEGATIVE) /HPF Urine Bacteria (NEGATIVE) /HPF Urine Mucus (NEGATIVE) /LPF SARS CoV-2 RNA Rapid YAMILE (NEGATIVE) Med Orders - Current: Current Medications Acetaminophen (Tylenol) 650 mg PO Q4H PRN PRN Reason: Pain (Mild 1-3)/fever Last Admin: 10/21/20 08:13 Dose: 650 mg Documented by: Fluoxetine HCl (Prozac) 40 mg PO DAILY [facility] Last Admin: 10/21/20 08:13 Dose: 40 mg Documented by: Lactated Ringer's (Ringers, Lactated) 1,000 mls @ 100 mls/hr IV ASDIRECTED [facility] Stop: 10/22/20 06:00 Lisinopril (Prinivil) 10 mg PO DAILY [facility] Last Admin: 10/21/20 08:13 Dose: 10 mg Documented by: Metoprolol Succinate (Toprol Xl) 100 mg PO DAILY [facility] Last Admin: 10/21/20 08:13 Dose: 100 mg Documented by: Discontinued Medications Lactated Ringer's (Ringers, Lactated) 1,000 mls @ 150 mls/hr IV ASDIRECTED [facility] Last Admin: 10/20/20 17:35 Dose: 150 mls/hr Documented by: Lactated Ringer's (Ringers, Lactated) 1,000 mls @ 100 mls/hr IV ASDIRECTED [facility] Last Admin: 10/20/20 21:12 Dose: 100 mls/hr Documented by: Metoprolol Tartrate (Lopressor) 25 mg PO NOW [facility] Stop: 10/20/20 20:07 Last Admin: 10/20/20 20:09 Dose: 25 mg Documented by: - Exam General: Alert, Oriented, Cooperative, No Acute Distress HEENT: Mucous Membr. Moist/[place] Neck: Supple, Trachea Midline, No Thyromegaly. No: Lymphadenopathy Lungs: Clear to Auscultation, Normal Respiratory Effort Cardiovascular: Regular Rate, Regular Rhythm, No Murmurs GI/Abdominal Exam: Normal Bowel Sounds, Soft, Non-Tender, No Organomegaly, No D istention, No Mass Extremities: Normal Inspection, Non-Tender, No Pedal Edema, Normal Capillary Refill Peripheral Pulses: 2+: Radial (L), Radial (R) Skin: Warm, Dry, Rash (right groin), Ecchymosis, Other (mucopurulent drainage from the umbilicus with some surrounding erythema noted as well; no tenderness or fluctuance to palpation) Neurological: No New Focal Deficit Sepsis Event Note - Evaluation Sepsis Screening Result: Sepsis Risk - Focused Exam Vital Signs: Vital Signs Temp Pulse Pulse Resp BP BP Pulse Ox 10/21/20 08:13 102 H 143/71 H 10/21/20 06:00 35.8 C L 95 20 154/64 H 90 L 10/21/20 02:30 92 L 10/21/20 02:00 36.4 C 89 20 123/54 L 90 L - Problem List & Annotations (1) Rhabdomyolysis SNOMED Code(s): 717980888 Code(s): M62.82 - RHABDOMYOLYSIS Status: Acute Current Visit: Yes Qualifiers: Rhabdomyolysis type: traumatic Encounter type: initial encounter Qualified Code(s): T79.6XXA - Traumatic ischemia of muscle, initial encounter (2) Dehydration SNOMED Code(s): 34317159 Code(s): E86.0 - DEHYDRATION Status: Acute Current Visit: Yes (3) Fall with injury SNOMED Code(s): 545065778 Code(s): W19.XXXA - UNSPECIFIED FALL, INITIAL ENCOUNTER Status: Acute Current Visit: Yes Qualifiers: Encounter type: initial encounter Qualified Code(s): W19.XXXA - Unspecified fall, initial encounter (4) Chest wall pain SNOMED Code(s): 475040277 Code(s): R07.89 - OTHER CHEST PAIN Status: Acute Current Visit: Yes (5) Decubitus skin ulcer SNOMED Code(s): 574352480 Code(s): L89.90 - PRESSURE ULCER OF UNSPECIFIED SITE, UNSPECIFIED STAGE Status: Acute Current Visit: Yes Qualifiers: Pressure injury location: sacral region Pressure injury stage: stage 1 Qualified Code(s): L89.151 - Pressure ulcer of sacral region, stage 1 (6) Intertrigo SNOMED Code(s): 89636071 Code(s): L30.4 - ERYTHEMA INTERTRIGO Status: Acute Current Visit: Yes (7) Open wound of umbilical region SNOMED Code(s): 059374591 Code(s): S31.105A - UNSP OPN WND ABD WALL, PERIUMB RGN W/O PENET PERIT CAV, INIT Status: Chronic Current Visit: Yes Qualifiers: Encounter type: sequela Qualified Code(s): S31.105S - Unspecified open wound of abdominal wall, periumbilic region without penetration into peritoneal cavity, sequela (8) SIRS (systemic inflammatory response syndrome) SNOMED Code(s): 671982913 Code(s): R65.10 - SIRS OF NON-INFECTIOUS ORIGIN W/O ACUTE ORGAN DYSFUNCTION Status: Acute Current Visit: Yes (9) Hypertension SNOMED Code(s): 32980616 Code(s): I10 - ESSENTIAL (PRIMARY) HYPERTENSION Status: Chronic Current Visit: Yes Qualifiers: Hypertension type: essential hypertension Qualified Code(s): I10 - Essential (primary) hypertension (10) COPD (chronic obstructive pulmonary disease) SNOMED Code(s): 77089205 Code(s): J44.9 - CHRONIC OBSTRUCTIVE PULMONARY DISEASE, UNSPECIFIED Status: Chronic Current Visit: Yes (11) Hyperlipidemia SNOMED Code(s): 29468825 Code(s): E78.5 - HYPERLIPIDEMIA, UNSPECIFIED Status: Chronic Current Visit: Yes (12) Diabetes SNOMED Code(s): 92943034 Code(s): E11.9 - TYPE 2 DIABETES MELLITUS WITHOUT COMPLICATIONS Status: Chronic Current Visit: Yes (13) Depression SNOMED Code(s): 95601065 Code(s): F32.9 - MAJOR DEPRESSIVE DISORDER, SINGLE EPISODE, UNSPECIFIED Status: Chronic Current Visit: Yes (14) Anxiety SNOMED Code(s): 19691061 Code(s): F41.9 - ANXIETY DISORDER, UNSPECIFIED Status: Chronic Current Visit: Yes - Problem List Review Problem List Initiated/Reviewed/Updated: Yes - My Orders Last 24 Hours: My Active Orders 10/20/20 20:43 Oxygen Therapy [RC] .PRN Up With Assistance [RC] VTE/DVT Education [RC] .PRN Vital Signs [RC] 06,10,14,18,22,02 Acetaminophen [TylenoL] 650 mg PO Q4H PRN Resuscitation Status Routine 10/20/20 20:44 Cardiac Monitoring [RC] 06,10,14,18,22,02 Notify Provider Vital Signs [RC] .PRN 10/20/20 21:10 Blood Glucose Check, Bedside [RC] 07,,17,20 10/21/20 08:00 FLUoxetine [PROzac] 40 mg PO DAILY Metoprolol Succinate [Toprol XL] 100 mg PO DAILY lisinopriL [Prinivil] 10 mg PO DAILY 10/21/20 20:00 Lactated Ringers [Ringers, Lactated] 1,000 ml IV ASDIRECTED 10/22/20 05:11 BASIC METABOLIC PANEL,BMP [CHEM] Routine CBC WITH AUTO DIFF [HEME] Routine CREATINE KINASE,CK [CHEM] Routine - Assessment Assessment:: 80 yo female admitted with rhabdomyolysis. She is feeling well this morning. CK downtrending but Wire Walker up slightly. Has had a gradual decrease in O2 saturation overnight. - Plan Plan:: #1 Rhabdomyolysis #2 Dehydration - Patient got 2L of IV fluids in the ER and another liter overnight. - Given she is awake and alert and able to drink today along with the fact that her saturations have started to decrease, will hold on further IV fluids during the day today. - Will resume LR @ 100 cc/hr at 8 pm and continue for another liter. - Recheck CK in the am. #3 Fall with injury #4 Chest wall pain - No major injuries from her fall. - Chest pain is clearly chest wall pain and is improved today making a rib fracture even less likely. - Therefore, no CXR at this time. - Tylenol for pain. - Will hold ibuprofen given #1. #5 Decubitus skin ulcer - Offloading measures and usual wound cares. #6 SIRS - For tachycardia and leukocytosis on admission. Both are improving. - Will d/c telemetry. - Likely secondary to #1 and #2. - Patient has no s/s of infection. WBC and CRP both downtrending. Therefore, no indication for antibiotics at this time. #7 Hypertension - HR and BP elevated on admission, much better this morning. - Continue metoprolol and lisinopril. #8 Intertrigo - Anti-fungal cream ordered. #9 Chronic umbilical wound - Keep clean/dry. - Has been there since at least 2018 per notes in [facility] without any significant change. - Will continue to monitor. #10 COPD - Patient is not on any medications for this. - Can do nebs if she has any wheezing/shortness of breath. #11 Hyperlipidemia - In light of #1, will hold her statin. #12 Diabetes - Hold metformin. - Will check glucose QID and assess need for insulin based on readings. #13 Depression #14 Anxiety - Continue prozac. Patient will remain on acute - may be ready for d/c as soon as tomorrow depending on am labs and how well she is moving around. Code status is DNR/DNI - discussed with patient on admission. Lovenox for VTE prophylaxis as CrCl is >30.
[2020-10-21] MEDS: Miconazole 2% Top Powder 45 GM Container TOP SCH ×2 (10:54→20:17)
[2020-10-21] MEDS: Enoxaparin 40 MG/0.4 ML Syringe SUBCUT SCH (10:54)
[2020-10-21] MEDS ORDERED: 50% Dextrose in Water 50 ML Syringe IV PRN (11:48)
[2020-10-21] MEDS ORDERED: Glucagon,Human Recombinant 1 MG Vial IM PRN (11:48)
[2020-10-21] MEDS: Insulin Lispro 100 Units/ML 3 ML Vial SUBCUT SCH ×2 (12:36→17:47)
[2020-10-21] MEDS ORDERED: Lactated Ringers 1,000 ML IV SCH (20:00)
[2020-10-22 07:29] LABS: CHLORIDE,CL 105 mmol/L (98-107); SODIUM,NA 143 mmol/L (136-145)
[2020-10-22 07:30] LABS: ANION GAP 9.1 mmol/L (5-15)
[2020-10-22] MEDS: Miconazole 2% Top Powder 45 GM Container TOP SCH ×2 (08:02→20:22)
[2020-10-22] MEDS: FLUoxetine 20 MG Cap PO SCH (08:03)
[2020-10-22] MEDS: Acetaminophen 325 MG Tab PO PRN ×3 (08:03→18:06)
[2020-10-22] MEDS: Lisinopril 10 MG Tab PO SCH (08:03)
[2020-10-22] MEDS: Metoprolol Succinate 50 MG Tab.ER PO SCH (08:03)
[2020-10-22] MEDS: Insulin Lispro 100 Units/ML 3 ML Vial SUBCUT SCH ×3 (08:04→18:06)
[2020-10-22] MEDS ORDERED: Potassium Chloride 10 MEQ Tab.ER PO ONE (08:05)
[2020-10-22] MEDS ORDERED: Sodium Chloride 0.9% 10 ML Syringe FLUSH PRN (08:19)
[2020-10-22] MEDS ORDERED: Diphtheria,Pertussis(Acell),Tetanus Vaccine 0.5 ML Syringe IM ONE ×2 (08:21→08:45)
[2020-10-22] MEDS: Albuterol/Ipratropium 3.0-0.5 MG/3 ML Neb Soln NEB SCH ×3 (09:12→18:06)
[2020-10-22] MEDS: Enoxaparin 40 MG/0.4 ML Syringe SUBCUT SCH (09:29)
--- NOTE | 2020-10-22 09:50 | PN ---
Progress Note for DARA SYLVESTER Date: 10/22/2020 Room #: VM.201 SUBJECTIVE: This is patient's third hospital day. She was admitted on 10/20/2020 after having a fall, which is unclear exactly of the date it had happened, about few days prior to admission, at least 3 days and she ended up having rhabdomyolysis, dehydration, and some skin abrasions. She had a head CT, which showed no acute bleeds, had some microvascular changes. She has been given IV hydration. Some of her kidney irritant medicines had been held such as her metformin and lisinopril. Her blood pressure has started to climb, so her lisinopril was resumed. She has been covered with p.r.n. insulin. Now today, she started to move around a little bit more, but her gait is very small and shuffling. She does have chest pain. She seems to be a little bit more short of breath, possibly due to pain. The patient is a little bit slow to respond to answers as well. OBJECTIVE: Vital Signs: Her weight is 70.3 kg, which is up 2 kg from admission. Her pulse is 109, blood pressure is 160/97, respiratory rate is 22, and saturations are 89% on room air. General: The patient is slightly tachypneic. Heart: Regular rate and rhythm. Lungs: Have diminished breath sounds on bases. Chest wall is tender with movement on the left than the right. Abdomen: Soft. Skin: She does have some skin rashes. She is questionably sore throughout her pelvis. Her skin, she does have some intertrigo in her skin folds. She does have abrasions on her knees, bruise on her arms and elbows. LABORATORY DATA: Her lab today shows her hemoglobin has dropped to 11.2, which may be dilutional. Her sodium 143, potassium 3.1, creatinine 0.9, and GFR greater than 60. Glucoses ranged between the 150s to 250s. Magnesium was slightly low at 1.7 today. Her CK is greatly improved at 336 from 1400 on admission. CRP has improved from 13.3 to 9.6. Her urinalysis appears to have contaminant present. IMPRESSION: 1. Fall. 2. Rhabdomyolysis. 3. Acute dehydration. 4. Mild cognitive dysfunction. 5. Chest wall pain. 6. Decubitus skin ulcers. 7. Abrasions on her knees. 8. Chronic kidney disease. 9. Hypertension. 10.Chronic obstructive pulmonary disease. 11.Elevated liver function tests. 12.Type 2 diabetes mellitus. 13.Depression. 14.Anxiety. PLAN: We will do a chest x-ray today on the patient as well as rib details. We will also do a pelvic x-ray. We will document the EKG on the patient. We will give her a tetanus booster since her last tetanus shot was in 2012. We will add DuoNeb to help with breathing. We will give her a one time potassium dose to help with her hypokalemia. We will have OT do a cognitive evaluation as well as regular evaluation as well as physical therapy for evaluation. Her blood sugars have been monitored by p.r.n. insulin doses. We will carefully monitor her blood pressure. Anticipate possibly patient maybe able to be transferred to swing bed tomorrow depending on evaluations of therapies. GM10/22/2020 08:29:45 MODL: 10/22/2020 09:42:33 /[id number]
--- NOTE | 2020-10-22 11:03 | CR ---
[id number] RAD/RAD Chest PA And Lateral EXAM: RAD Chest PA And Lateral INDICATION: SHORT OF BREATH. COMPARISON: None. DISCUSSION: Cardiomediastinal silhouette is stable in size and contour. No infiltrate, effusion, pneumothorax, or edema. Pulmonary hyperinflation. IMPRESSION: No acute cardiopulmonary abnormality. Last Tanner DO 10/22/20 1102 Thank you for allowing us to participate in the care of your patient.
--- NOTE | 2020-10-22 11:03 | CR ---
[id number] RAD/RAD Ribs Left W PA Chest Exam: RAD Ribs Left W PA Chest Clinical Data: TRAUMA COMPARISON: NO PREVIOUS SIMILAR EXAM IS AVAILABLE FINDINGS: There is a slight fracture deformity of the left seventh rib laterally, age indeterminate IMPRESSION: LEFT SEVENTH RIB FRACTURE AGE INDETERMINATE Matthew Sim MD 10/22/20 6426 Thank you for allowing us to participate in the care of your patient.
--- NOTE | 2020-10-22 11:03 | CR ---
[id number] RAD/RAD Pelvis 1-2V Exam: RAD Pelvis 1-2V Clinical Data: TRAUMA COMPARISON: NO PREVIOUS SIMILAR EXAM IS NOTABLE FINDINGS: No fracture or dislocation is seen There are degenerative changes IMPRESSION: DEGENERATIVE CHANGES ONLY Matthew Sim MD 10/22/20 5445 Thank you for allowing us to participate in the care of your patient.
[2020-10-22] MEDS ORDERED: Docusate Sodium 100 MG Cap PO PRN (11:49)
--- NOTE | 2020-10-22 11:51 | PCM.SN.2 ---
- Free Text/Narrative Note: xrays of chest, pelvis and ribs showed fractrues of left 7th rib, right 4th rib and right 5th rib.
[2020-10-22] MEDS: traMADol 50 MG Tab PO PRN (20:24)
[2020-10-23] MEDS: Albuterol/Ipratropium 3.0-0.5 MG/3 ML Neb Soln NEB SCH ×4 (01:21→18:02)
[2020-10-23 06:57] LABS: CHLORIDE,CL 106 mmol/L (98-107); SODIUM,NA 145 mmol/L (136-145)
[2020-10-23 06:58] LABS: ANION GAP 8.2 mmol/L (5-15)
[2020-10-23] MEDS: Miconazole 2% Top Powder 45 GM Container TOP SCH ×2 (07:58→20:23)
[2020-10-23] MEDS: Insulin Lispro 100 Units/ML 3 ML Vial SUBCUT SCH ×3 (07:59→17:58)
[2020-10-23] MEDS: Metoprolol Succinate 50 MG Tab.ER PO SCH (07:59)
[2020-10-23] MEDS: FLUoxetine 20 MG Cap PO SCH (07:59)
[2020-10-23] MEDS: Acetaminophen 325 MG Tab PO PRN (08:00)
[2020-10-23] MEDS: Lisinopril 10 MG Tab PO SCH (08:00)
[2020-10-23] MEDS: traMADol 50 MG Tab PO PRN ×2 (08:00→18:03)
[2020-10-23] MEDS ORDERED: Magnesium Chloride 64 MG Tab.ER PO SCH (08:30)
--- NOTE | 2020-10-23 09:06 | PN ---
Progress Note for DARA SYLVESTER Date: 10/23/2020 Room #: VM.201 SUBJECTIVE: This is the patient's fourth hospital day after having been admitted for a fall with rhabdomyolysis. Yesterday, she was found to have bilateral rib fractures with plain films of her chest, but pelvic x-ray was negative for fractures. The patient was started on DuoNeb as she was hypoxic. DuoNeb have helped some with respiratory toilet, but she still is requiring oxygen. She was placed on tramadol for pain control. Her blood pressure has been improving slightly as it is felt that being off her medications a few days may have contributed to her bump in blood pressure. The patient is noted to be still more forgetful and her daughter on the phone says this is unusual for her, she was not aware of her mother making mistakes, however, it was noted in the clinic that she did have some mild forgetfulness. To note, the patient has not smoked for years and so would not be going through any sort of nicotine withdrawal. OBJECTIVE: Vital Signs: Temperature is 36.2, pulse 108, blood pressure is 153/81, saturations are 90% on 1.5 L. Skin: Has bruises that are healing as well as abrasions on her knees and abrasions to her lip. Heart: Regular rate and rhythm. Lungs: Have diminished breath sounds on bases. Abdomen: Slightly distended. Bowel sounds are present. Extremities: Lower extremities, no edema. LABORATORY DATA: Shows that her hemoglobin has dropped just slightly to 11.5, platelet count is 224, white blood cell count 9.4. Sodium is 145, potassium has only improved to 3.2, creatinine is normal at 0.8, BUN has greatly improved to 28, GFR greater than 60, glucose 152. LFTs are back to normal. Magnesium is low at 1.5. Albumin is low at 2.3. IMPRESSION: 1. Fall. 2. Rhabdomyolysis, greatly improved. 3. Bilateral rib fractures, newly found with pain. 4. Hypoxemia, which is new onset. 5. Confusion. 6. Type 2 diabetes mellitus. 7. Hypertension. 8. Hypokalemia. 9. Hypomagnesemia. PLAN: We will repeat head CT today to rule out any sort of bleed that may have showed up after initial fall. We will continue therapies today. She will still stay on acute care. She is needing oxygen and we are assessing her baseline status. We will place her on scheduled Tylenol to see if this also helps with pain and see if the nebs help with her coughing. Will repeat a UA today as prior one was contaminated. Her chest x-ray yesterday did not show any signs of infiltrate. I do anticipate the patient to go to swing bed tomorrow. The patient's daughter was briefly visited with on the telephone as well. GM10/23/2020 08:26:13 MODL: 10/23/2020 08:46:46 /[id number] MTDD
--- NOTE | 2020-10-23 09:43 | CT ---
[id number] CT/CT Head WO IV EXAM: CT Head WO IV CLINICAL DATA: TRAUMA COMPARISON: CORRELATION IS MADE WITH OCTOBER 20, 2020 FINDINGS: There is no mass or mass effect. There is no hemorrhage or hydrocephalus. There are no extra-axial fluid collections. Left frontal white matter hypodensity is stable since the last exam. IMPRESSION: NO PLAIN CT EVIDENCE OF ACUTE INTRACRANIAL PROCESS. Matthew Sim MD 10/23/20 0942 Thank you for allowing us to participate in the care of your patient.
[2020-10-23] MEDS: Potassium Chloride 10 MEQ Tab.ER PO SCH (09:48)
[2020-10-23] MEDS: Enoxaparin 40 MG/0.4 ML Syringe SUBCUT SCH (09:48)
[2020-10-23] MEDS: Acetaminophen 325 MG Tab PO SCH ×2 (12:05→20:24)
[2020-10-23] MEDS: metFORMIN 500 MG Tab PO SCH (17:57)
[2020-10-23] MEDS ORDERED: Simvastatin 40 MG Tab PO SCH (20:00)
[2020-10-24] MEDS: Albuterol/Ipratropium 3.0-0.5 MG/3 ML Neb Soln NEB SCH ×2 (02:06→07:07)
[2020-10-24 06:51] LABS: CHLORIDE,CL 103 mmol/L (98-107); SODIUM,NA 142 mmol/L (136-145)
[2020-10-24 06:52] LABS: ANION GAP 9.4 mmol/L (5-15)
[2020-10-24] MEDS ORDERED: Multivitamins with Iron/Calcium/Folic Acid/Minerals Tab PO SCH (08:00)
[2020-10-24] MEDS ORDERED: Cyanocobalamin (Vitamin B12) 1,000 MCG Tab PO SCH (08:00)
[2020-10-24] MEDS ORDERED: Iron Polysaccharides Complex 150 MG Cap PO SCH (08:00)
[2020-10-24] MEDS ORDERED: Magnesium Chloride 64 MG Tab.ER PO SCH (08:00)
[2020-10-24] MEDS: metFORMIN 500 MG Tab PO SCH (08:26)
[2020-10-24] MEDS: traMADol 50 MG Tab PO PRN (08:27)
[2020-10-24] MEDS: Metoprolol Succinate 50 MG Tab.ER PO SCH (08:27)
[2020-10-24] MEDS: Acetaminophen 325 MG Tab PO SCH (08:27)
[2020-10-24 08:28] VITALS: BP 146/86; PULSE 111
[2020-10-24] MEDS: FLUoxetine 20 MG Cap PO SCH (08:28)
[2020-10-24] MEDS: Lisinopril 10 MG Tab PO SCH (08:28)
[2020-10-24] MEDS: Potassium Chloride 10 MEQ Tab.ER PO SCH (08:28)
[2020-10-24] MEDS: Miconazole 2% Top Powder 45 GM Container TOP SCH (08:28)
[2020-10-24] MEDS: Insulin Lispro 100 Units/ML 3 ML Vial SUBCUT SCH (08:30)
--- NOTE | 2020-10-24 09:04 | PN ---
Progress Note for DARA SYLVESTER Date: 10/24/2020 Room #: VM.201 SUBJECTIVE: She had an uneventful night. This is her hospital day #5. The pain pills are helping. She had a head CT which did show no changes from admission head CT. Blood sugars have been improving as well as blood pressure. She is slow to get around. Her mental processes are slow. OBJECTIVE: Vital Signs: Her weight is down to 69.6 kg, temperature is 35.9, pulse 93, blood pressure is 151/62, saturations are 93% with 1 L. General: She is more alert today, more talkative. Heart: Regular rate and rhythm. Lungs: Clear to auscultation. Abdomen: Soft. Bowels have been slow. Skin: Abrasions on knees are healing. LABORATORY DATA: Her lab today shows that her hemoglobin has slightly dropped at 10.9, white blood cell count 9.8, platelet count 223, with 76 segs, 1 band, 10 lymphs. Sodium is 142, potassium 3.4, creatinine 0.6, GFR greater than 60. Glucose is 173, calcium is 8.4, magnesium dropped at 1.3. Iron is low at 11, TIBC is low at 176, percent saturation is low at 6.2, ferritin is high at 314, but I feel some of this is related to stress going on. Urinalysis was repeated yesterday, which was normal. IMPRESSION: 1. Fall. 2. Acute rhabdomyolysis. 3. Hypoxemia, improving. 4. Bilateral rib fractures. 5. Hypertension. 6. Anemia.multifactoral 7. Hypokalemia. 8. Hypomagnesemia. 9. Hypertension. 10.Type 2 diabetes mellitus. 11.Cognitive dysfunction. 12. COPD 13. Chronic depression PLAN: The patient will be increased on her magnesium to b.i.d. We will start her on iron pill daily. We will place her on swing bed today. We will switch her stool softener to schedule to help with better bowel function. We will continue to work with her mental status as well as therapies to see if she is able to return home versus if she needs different sort of care. GM10/24/2020 08:07:01 MODL: 10/24/2020 08:20:23 /[id number] LI
--- NOTE | 2020-10-24 10:19 | DISCH ---
PRIMARY DIAGNOSIS: Fall. SECONDARY DIAGNOSES: 1. Acute rhabdomyolysis. 2. Bilateral rib fractures. 3. Dehydration. 4. Hypokalemia. 5. Hypomagnesemia. 6. Hypoxemia, multifactorial. 7. Hypertension. 8. Type 2 diabetes mellitus. 9. Chronic obstructive pulmonary disease. 10.Cognitive dysfunction. 11.Chronic depression. SUMMARY OF ADMIT HISTORY AND PHYSICAL: The patient is an 80-year-old female who had fallen at home about 3 days prior to admission, unclear exactly when. She had been in her garage with standing up, trying to put up a light bulb in a light fixture when she fell. Did not strike her head. She is not aware of. She crawled into the house and family found her when they had not heard from her for a few days. When the patient presented to the emergency room, she was noted to be incontinent of urine and stool. She was alert, talkative. She had no contusions on her head. Her lips were quite dry and cracked with blood. Oral mucosa was dry. Neck was nontender. Lungs were clear to auscultation. She did have some tenderness along the sternum as well as lateral aspects of the chest. Heart; regular rate and rhythm. Abdomen; bowel sounds were present. Back is nontender. Extremities showed bruising on left elbow, left shoulder, left hip and right hip, right elbow, and abrasions on her knees. Her umbilicus was noted to have a chronic erythematous skin. Her vital signs on admission were blood pressure of 110/60, pulse was 90, sats were 91, temperature is 96.9. The patient did have a head CT which showed no evidence of acute bleed. Initial laboratory work showed white blood cell count elevated at 13.3, hemoglobin 13.2, platelets 240. Glucose was 162, sodium was 145, potassium was 3.7, creatinine 0.8, BUN 50, GFR greater than 60, magnesium 1.6, AST 62, ALT 73. CK 1496. Troponin 0.056. CRP 14.2, albumin 2.8, lipase 82. Urinalysis was very concentrated, specific gravity greater than 1.030, protein 100. She had ketones present, 5-10 red blood cells, 0-5 white blood cells, many casts, many squamous epithelials. SUMMARY OF HOSPITAL COURSE: The patient was admitted to acute care given IV hydration with normal saline and lactated Ringer's. Her C-spine was cleared with NEXUS criteria, so she did not have x-rays there. Her EKG on admission showed no ST changes. Lactic acid was 1.4 on admission. COVID test was negative. Her TEE inhibitor was held as well as her metformin because of reduced renal function. The patient was noted to have improvements of her laboratory. CK improving to 838 on 10/21, 336 on 10/22, on 10/22 down to 152. It was noted after hydration her potassium had dropped down to 3.1. She was given oral replacement, but still need to have potassium replacement. As on 10/24, she was at 3.4. Magnesium was noted to drop down to 1.3 on 10/24, so she was started on oral magnesium. Her hemoglobin did drop, unclear if it was related to her rhabdomyolysis versus stressor. Hemoglobin had dropped down to 10.9 on 10/24. She did have iron storage tests done on 10/24, which showed iron level 11, which is low; TIBC 178%, which is low; percent saturation low at 6.2. Ferritin was high at 314, but felt to be possibly stress related. She did have a repeat urinalysis on 10/23 due to confusion. There was no evidence of any infection. She did have a chest x-ray done on 10/22/2020, which did show left 7th rib fracture and right 4th and 5th rib fractures. No pneumothorax. The patient was requiring oxygen. The patient was placed on DuoNeb to help with better pulmonary toilet. She did have a pelvic x-ray done which showed no pelvic fractures. Also plain chest x-ray showed no pneumothorax or pneumonitis. On 10/23, a head CT was repeated because of continued confusion that showed chronic small microvascular changes. There was a left frontal white hypodensity which was stable since last exam. The patient's lisinopril was resumed because her blood pressure went high. Her metformin was also resumed once her renal function went back to normal to help with better blood sugar control. She was covered by p.r.n. sliding scale insulin as well. The patient was seen by OT and found to have quite a few cognitive deficits and her mini-mental status exam was 25/30. She was seen by Physical Therapy and found to be very deconditioned and very weak. She had been placed on Lovenox for DVT prophylaxis. It was unclear if this was contributing to her anemia, but was felt to be safe to continue at the present time. In terms of pain control, she had Tylenol p.r.n., but she was placed on tramadol p.r.n. as well, which did help. MEDICATIONS AT THE TIME OF TRANSFER: Tylenol 650 t.i.d. as well as 650 q.4 hours p.r.n. with a maximum of 3000 mg per day; albuterol DuoNeb 4 times a day; vitamin B12 1000 mcg 1 pill daily; Colace 100 mg 1 pill daily p.r.n.; Lovenox 40 mg subcu q.24 hours; Prozac 40 mg 1 pill daily; glucagon p.r.n. for low blood sugars; Humalog sliding scale, please refer to nursing orders load dose; Prinivil 10 mg 1 pill daily; magnesium chloride 64 mg 1 pill twice a day; metformin 850, 1 pill twice a day; metoprolol-XL 100 mg 1 pill daily; Desenex applied twice a day; multivitamin 1 pill daily; iron 150 mg 1 pill daily; potassium chloride 10 mEq 1 pill daily; simvastatin 40 mg 1 pill at bedtime; tramadol 50 mg q.i.d. p.r.n. In its hope, the patient would be able to return to her home environment, but it depends on her cognitive dysfunction as well as her strength returning. Also, its hope that she will be able to get off oxygen as well. GM10/24/2020 08:16:25 MODL: 10/24/2020 10:13:21 /[id number]
== END 2020-10-24 09:47 | disposition swing bed (61) | DRG 565 ==
LOC: VM.ED 16:28 → VM.MS 19:01
PROVIDERS: ADMIT Family Medicine; ATTEND Family Medicine
DX: T79.6XXA Traumatic ischemia of muscle, initial encounter (principal); S22.41XA Multiple fractures of ribs, right side, initial encounter for closed fracture; R65.10 Systemic inflammatory response syndrome (SIRS) of non-infectious origin without acute organ dysfunction; W19.XXXA Unspecified fall, initial encounter; E86.0 Dehydration; L89.151 Pressure ulcer of sacral region, stage 1; J43.9 Emphysema, unspecified; K57.90 Diverticulosis of intestine, part unspecified, without perforation or abscess without bleeding; L30.4 Erythema intertrigo; S31.105S Unspecified open wound of abdominal wall, periumbilic region without penetration into peritoneal cavity, sequela; J44.9 Chronic obstructive pulmonary disease, unspecified; E11.40 Type 2 diabetes mellitus with diabetic neuropathy, unspecified; E55.9 Vitamin D deficiency, unspecified; Z88.8 Allergy status to other drugs, medicaments and biological substances; Z20.822 Contact with and (suspected) exposure to COVID-19; E78.5 Hyperlipidemia, unspecified; F32.9 Major depressive disorder, single episode, unspecified; F41.9 Anxiety disorder, unspecified; D64.9 Anemia, unspecified; E87.6 Hypokalemia; E83.42 Hypomagnesemia; G31.84 Mild cognitive impairment of uncertain or unknown etiology; N18.9 Chronic kidney disease, unspecified; I12.9 Hypertensive chronic kidney disease with stage 1 through stage 4 chronic kidney disease, or unspecified chronic kidney disease; E11.22 Type 2 diabetes mellitus with diabetic chronic kidney disease; S80.212A Abrasion, left knee, initial encounter; S80.211A Abrasion, right knee, initial encounter; E78.00 Pure hypercholesterolemia, unspecified; H54.7 Unspecified visual loss; M81.0 Age-related osteoporosis without current pathological fracture; E11.42 Type 2 diabetes mellitus with diabetic polyneuropathy; Z88.6 Allergy status to analgesic agent; Z79.84 Long term (current) use of oral hypoglycemic drugs; Z79.899 Other long term (current) drug therapy; W10.8XXS Fall (on) (from) other stairs and steps, sequela
CPT/HCPCS: 36415; 70450; 71046; 71100-LT; 71100-RT; 72170; 80048; 80053; 81001; 82550; 82728; 82962; 83540; 83550; 83605; 83690; 83735; 83874; 84484; 85025; 85610; 85730; 86140; 87086; 90471; 90715; 93005; 94640; 94760; 97110-GP; 97116-GP; 97129-GO; 97130-GO; 97161-GP; 97165-GO; 97535-GO; 99284; 99285-25; A9270-GY; J1650; J1815-GY; J7120; J7620-GY; U0002

== ENCOUNTER 2020-10-24 08:33 | Inpatient (IN) | payer MEDICARE, OTHER ==
[2020-10-24] MEDS ORDERED: Glucagon,Human Recombinant 1 MG Vial IM PRN ×2 (09:53)
[2020-10-24] MEDS ORDERED: 50% Dextrose in Water 50 ML Syringe IV PRN (09:53)
[2020-10-24] MEDS ORDERED: Enoxaparin 40 MG/0.4 ML Syringe SUBCUT SCH (11:00)
[2020-10-24] MEDS: Acetaminophen 325 MG Tab PO SCH ×2 (11:26→19:43)
[2020-10-24] MEDS: Insulin Lispro 100 Units/ML 3 ML Vial SUBCUT SCH ×2 (12:08→18:00)
[2020-10-24] MEDS: Albuterol/Ipratropium 3.0-0.5 MG/3 ML Neb Soln NEB SCH ×2 (12:30→18:02)
[2020-10-24] MEDS: traMADol 50 MG Tab PO PRN (18:01)
[2020-10-24] MEDS: Magnesium Chloride 64 MG Tab.ER PO SCH (19:43)
[2020-10-24] MEDS: Simvastatin 40 MG Tab PO SCH (19:43)
[2020-10-24] MEDS: Miconazole 2% Top Powder 45 GM Container TOP SCH (19:44)
[2020-10-25] MEDS: Albuterol/Ipratropium 3.0-0.5 MG/3 ML Neb Soln NEB SCH ×4 (01:04→18:04)
[2020-10-25] MEDS: Lisinopril 10 MG Tab PO SCH (08:13)
[2020-10-25] MEDS: traMADol 50 MG Tab PO PRN ×2 (08:14→19:56)
[2020-10-25] MEDS: FLUoxetine 20 MG Cap PO SCH (08:14)
[2020-10-25] MEDS: Cyanocobalamin (Vitamin B12) 1,000 MCG Tab PO SCH (08:14)
[2020-10-25] MEDS: Magnesium Chloride 64 MG Tab.ER PO SCH ×2 (08:14→19:55)
[2020-10-25] MEDS: Multivitamins with Iron/Calcium/Folic Acid/Minerals Tab PO SCH (08:14)
[2020-10-25] MEDS: Potassium Chloride 10 MEQ Tab.ER PO SCH (08:14)
[2020-10-25] MEDS: Metoprolol Succinate 50 MG Tab.ER PO SCH (08:14)
[2020-10-25] MEDS: Miconazole 2% Top Powder 45 GM Container TOP SCH ×2 (08:15→19:55)
[2020-10-25] MEDS: Docusate Sodium 100 MG Cap PO SCH (08:15)
[2020-10-25] MEDS: Acetaminophen 325 MG Tab PO SCH ×3 (08:16→19:55)
[2020-10-25] MEDS: Insulin Lispro 100 Units/ML 3 ML Vial SUBCUT SCH ×3 (08:16→17:42)
--- NOTE | 2020-10-25 10:57 | PCM.SN.2 ---
- Free Text/Narrative Note: Will stop her lovenox due to continue drop of hemoglobin. Will start compression stocking.
[2020-10-25] MEDS: Iron Polysaccharides Complex 150 MG Cap PO SCH (11:23)
[2020-10-25] MEDS: [UNRECOGNIZED DRUG - OTHER] PO SCH ×2 (11:24→19:55)
[2020-10-25] MEDS: Simvastatin 40 MG Tab PO SCH (19:56)
[2020-10-26] MEDS: Albuterol/Ipratropium 3.0-0.5 MG/3 ML Neb Soln NEB SCH ×4 (01:51→18:05)
[2020-10-26] MEDS: Cyanocobalamin (Vitamin B12) 1,000 MCG Tab PO SCH (07:44)
[2020-10-26] MEDS: FLUoxetine 20 MG Cap PO SCH (07:44)
[2020-10-26] MEDS: Potassium Chloride 10 MEQ Tab.ER PO SCH (07:44)
[2020-10-26] MEDS: Multivitamins with Iron/Calcium/Folic Acid/Minerals Tab PO SCH (07:44)
[2020-10-26] MEDS: Docusate Sodium 100 MG Cap PO SCH (07:44)
[2020-10-26] MEDS: Magnesium Chloride 64 MG Tab.ER PO SCH ×2 (07:44→19:50)
[2020-10-26] MEDS: Lisinopril 10 MG Tab PO SCH ×2 (07:45→08:49)
[2020-10-26] MEDS: Metoprolol Succinate 50 MG Tab.ER PO SCH (07:45)
[2020-10-26] MEDS: Acetaminophen 325 MG Tab PO SCH ×3 (07:45→19:50)
[2020-10-26] MEDS: Insulin Lispro 100 Units/ML 3 ML Vial SUBCUT SCH ×2 (07:45→11:52)
[2020-10-26] MEDS: [UNRECOGNIZED DRUG - OTHER] PO SCH (07:46)
[2020-10-26] MEDS: Miconazole 2% Top Powder 45 GM Container TOP SCH ×2 (07:47→19:51)
[2020-10-26] MEDS: Iron Polysaccharides Complex 150 MG Cap PO SCH (11:47)
[2020-10-26] MEDS ORDERED: Insulin Lispro 100 Units/ML 3 ML Vial SUBCUT PRN (17:27)
[2020-10-26] MEDS: Simvastatin 40 MG Tab PO SCH (19:50)
[2020-10-27] MEDS: [UNRECOGNIZED DRUG - OTHER] PO SCH ×3 (00:57→23:41)
[2020-10-27] MEDS: Albuterol/Ipratropium 3.0-0.5 MG/3 ML Neb Soln NEB SCH ×4 (01:13→18:08)
[2020-10-27] MEDS: Multivitamins with Iron/Calcium/Folic Acid/Minerals Tab PO SCH (08:21)
[2020-10-27] MEDS: Potassium Chloride 10 MEQ Tab.ER PO SCH (08:21)
[2020-10-27] MEDS: Magnesium Chloride 64 MG Tab.ER PO SCH ×2 (08:21→19:56)
[2020-10-27] MEDS: Cyanocobalamin (Vitamin B12) 1,000 MCG Tab PO SCH (08:21)
[2020-10-27] MEDS: FLUoxetine 20 MG Cap PO SCH (08:21)
[2020-10-27] MEDS: Acetaminophen 325 MG Tab PO SCH ×3 (08:22→19:57)
[2020-10-27] MEDS: Metoprolol Succinate 50 MG Tab.ER PO SCH (08:22)
[2020-10-27] MEDS: Miconazole 2% Top Powder 45 GM Container TOP SCH ×2 (08:22→23:46)
[2020-10-27] MEDS: Lisinopril 10 MG Tab PO SCH (08:22)
[2020-10-27] MEDS: Docusate Sodium 100 MG Cap PO SCH (08:23)
[2020-10-27] MEDS ORDERED: Loperamide 2 MG Cap PO PRN (12:25)
[2020-10-27] MEDS: traMADol 50 MG Tab PO PRN (12:32)
[2020-10-27] MEDS: Iron Polysaccharides Complex 150 MG Cap PO SCH (12:32)
[2020-10-27] MEDS: Ondansetron 4 MG Tab.DIS PO PRN (12:32)
[2020-10-27] MEDS: Simvastatin 40 MG Tab PO SCH (19:56)
[2020-10-27] MEDS: Calcium Carbonate 750 MG Tab.Chew PO PRN (19:57)
[2020-10-28] MEDS: Albuterol/Ipratropium 3.0-0.5 MG/3 ML Neb Soln NEB SCH ×5 (01:31→18:09)
[2020-10-28] MEDS: Magnesium Chloride 64 MG Tab.ER PO SCH ×2 (08:11→19:15)
[2020-10-28] MEDS: FLUoxetine 20 MG Cap PO SCH (08:11)
[2020-10-28] MEDS: Potassium Chloride 10 MEQ Tab.ER PO SCH (08:11)
[2020-10-28] MEDS: Lisinopril 10 MG Tab PO SCH (08:11)
[2020-10-28] MEDS: Cyanocobalamin (Vitamin B12) 1,000 MCG Tab PO SCH (08:11)
[2020-10-28] MEDS: Multivitamins with Iron/Calcium/Folic Acid/Minerals Tab PO SCH (08:11)
[2020-10-28] MEDS: Calcium Carbonate 750 MG Tab.Chew PO PRN (08:11)
[2020-10-28] MEDS: [UNRECOGNIZED DRUG - OTHER] PO SCH ×2 (08:12→19:18)
[2020-10-28] MEDS: Miconazole 2% Top Powder 45 GM Container TOP SCH ×2 (08:12→19:17)
[2020-10-28] MEDS: Metoprolol Succinate 50 MG Tab.ER PO SCH (08:12)
[2020-10-28] MEDS: Docusate Sodium 100 MG Cap PO SCH (08:12)
[2020-10-28] MEDS: Acetaminophen 325 MG Tab PO SCH ×3 (08:12→19:16)
[2020-10-28] MEDS: traMADol 50 MG Tab PO PRN (12:16)
[2020-10-28] MEDS: Iron Polysaccharides Complex 150 MG Cap PO SCH (12:17)
[2020-10-28] MEDS: Simvastatin 40 MG Tab PO SCH (19:15)
[2020-10-29] MEDS: Albuterol/Ipratropium 3.0-0.5 MG/3 ML Neb Soln NEB SCH ×2 (00:28→06:10)
[2020-10-29 07:05] LABS: CHLORIDE,CL 102 mmol/L (98-107); SODIUM,NA 141 mmol/L (136-145)
[2020-10-29 07:10] LABS: ANION GAP 11.1 mmol/L (5-15)
[2020-10-29] MEDS: Ondansetron 4 MG Tab.DIS PO PRN (07:29)
[2020-10-29] MEDS: [UNRECOGNIZED DRUG - OTHER] PO SCH ×2 (07:29→19:41)
[2020-10-29] MEDS: Lisinopril 10 MG Tab PO SCH (07:29)
[2020-10-29] MEDS: Docusate Sodium 100 MG Cap PO SCH ×2 (07:30→19:38)
[2020-10-29] MEDS: FLUoxetine 20 MG Cap PO SCH (07:30)
[2020-10-29] MEDS: Acetaminophen 325 MG Tab PO SCH ×3 (07:30→19:40)
[2020-10-29] MEDS: Magnesium Chloride 64 MG Tab.ER PO SCH ×2 (07:30→19:38)
[2020-10-29] MEDS: traMADol 50 MG Tab PO PRN ×2 (07:30→19:37)
[2020-10-29] MEDS: Cyanocobalamin (Vitamin B12) 1,000 MCG Tab PO SCH (07:30)
[2020-10-29] MEDS: Multivitamins with Iron/Calcium/Folic Acid/Minerals Tab PO SCH (07:30)
[2020-10-29] MEDS: Metoprolol Succinate 50 MG Tab.ER PO SCH (07:30)
[2020-10-29] MEDS: Potassium Chloride 10 MEQ Tab.ER PO SCH (07:31)
[2020-10-29] MEDS: Miconazole 2% Top Powder 45 GM Container TOP SCH ×2 (07:31→19:40)
--- NOTE | 2020-10-29 08:59 | PN ---
Progress Note for DARA SYLVESTER Date: 10/29/2020 Room #: VM.201 SUBJECTIVE: The patient is on swing bed, getting stronger after her fall with rhabdomyolysis and rib fractures. She is getting a little bit more cognitively alert. She has been able to get weaned down from oxygen. She was placed on DuoNebs to help with lung function. She did have some anemia which may have been related to her fall, but also possibly the Lovenox shot, so the shots were stopped and she was placed on RAUDEL stockings. She was started on iron pill. Her lisinopril dose has been increased to help with better blood pressure control. Her metformin had been resumed for diabetes and her blood sugars have been well controlled. She comments that she does have some pain on her right side. Bowels are a little bit slower. She is getting stronger, but using a walker for ambulation and working with OT as well. OBJECTIVE: Vital Signs: Her temperature is 35.9, pulse is 96, blood pressure is 152/84, respiratory rate 18, saturations are 94% on room air. General: She looks much more bright. Abrasions are dressed with bandages. Heart: Regular rate and rhythm. Lungs: Have diminished breath sounds on bases, but no wheezes appreciated today. Abdomen: Soft. Lower extremities: No edema. Neurological: She is looking more bright, tracking better. LABORATORY DATA: Today shows that her white blood cell count is 11.4, hemoglobin stable at 10.1, and platelets 389. Sodium is 141, potassium 4.1, creatinine 0.9, GFR greater than 60, glucose is 123. LFTs are normal. Albumin is low at 2.4. IMPRESSION: 1. Fall. 2. Rhabdomyolysis. 3. Hypoxemia, greatly improving. 4. Hypokalemia, which has been resolved. 5. Hypomagnesemia. 6. Chronic obstructive pulmonary disease. 7. Cognitive dysfunction 8. Yeast skin infection. 9. Type 2 diabetes mellitus. 10.Hypertension. 11.Chronic depression. 12. Skin abrasions. 13. Constipation. PLAN: We will have the patient increase her stool softener. We will switch her nebs to p.r.n. We will have her stop her p.r.n. insulin. It was not felt that this is needed and hopefully she will be able to be discharged home in about a week's time. Will repeat lab on 1/28/21 and repeat chest xray on 10/31/20. GM10/29/2020 08:17:06 MODL: 10/29/2020 08:53:05 /[id number] MTDD
[2020-10-29] MEDS: Iron Polysaccharides Complex 150 MG Cap PO SCH (12:26)
[2020-10-29] MEDS: Calcium Carbonate 750 MG Tab.Chew PO PRN (12:28)
--- NOTE | 2020-10-29 16:40 | MR ---
[id number] MR/MRI Brain and Stem WO IV EXAM: BRAIN MRI WITHOUT CONTRAST INDICATION: COGNITIVE DYSFUNCTION. COMPARISON: October 23, 2020. DISCUSSION: The ventricles and sulci are normal in size and configuration. [id number] periventricular and juxtacortical white matter and moderate to advanced pontine T2 hyperintensities are nonspecific, but often ascribed to chronic small vessel ischemia. A small chronic left frontal lobe infarct. No mass effect, midline shift or cerebellar tonsillar ectopia. No restricted diffusion. A limited look at the orbits, calvarium and paranasal sinuses is unremarkable. IMPRESSION: 1. Moderate chronic small vessel ischemic changes. 2. Small chronic left frontal infarct. 3. No acute findings. Javi Laureano MD 10/29/20 6448 Thank you for allowing us to participate in the care of your patient.
[2020-10-29] MEDS: Acetaminophen 325 MG Tab PO PRN ×2 (17:51→19:36)
[2020-10-29] MEDS: Albuterol/Ipratropium 3.0-0.5 MG/3 ML Neb Soln NEB PRN ×2 (19:36→19:40)
[2020-10-29] MEDS: Simvastatin 40 MG Tab PO SCH (19:38)
[2020-10-30] MEDS: Cyanocobalamin (Vitamin B12) 1,000 MCG Tab PO SCH (07:40)
[2020-10-30] MEDS: Acetaminophen 325 MG Tab PO SCH ×3 (07:40→19:29)
[2020-10-30] MEDS: FLUoxetine 20 MG Cap PO SCH (07:40)
[2020-10-30] MEDS: Multivitamins with Iron/Calcium/Folic Acid/Minerals Tab PO SCH (07:40)
[2020-10-30] MEDS: Magnesium Chloride 64 MG Tab.ER PO SCH ×2 (07:40→19:29)
[2020-10-30] MEDS: traMADol 50 MG Tab PO PRN (07:40)
[2020-10-30] MEDS: Calcium Carbonate 750 MG Tab.Chew PO PRN ×2 (07:40→17:57)
[2020-10-30] MEDS: Docusate Sodium 100 MG Cap PO SCH ×2 (07:40→19:29)
[2020-10-30] MEDS: Potassium Chloride 10 MEQ Tab.ER PO SCH (07:40)
[2020-10-30] MEDS: Lisinopril 10 MG Tab PO SCH (07:41)
[2020-10-30] MEDS: [UNRECOGNIZED DRUG - OTHER] PO SCH ×2 (07:41→19:29)
[2020-10-30] MEDS: Metoprolol Succinate 50 MG Tab.ER PO SCH (07:41)
[2020-10-30] MEDS: Miconazole 2% Top Powder 45 GM Container TOP SCH ×2 (07:41→19:30)
--- NOTE | 2020-10-30 08:04 | PCM.SN.2 ---
- Free Text/Narrative Note: MRI from 10/29/20 came back with showed left frontal infarct old with moderate chronic small vessel ischemic disease.
[2020-10-30] MEDS: Iron Polysaccharides Complex 150 MG Cap PO SCH (12:07)
[2020-10-30] MEDS: Simvastatin 40 MG Tab PO SCH (19:29)
[2020-10-31] MEDS: Acetaminophen 325 MG Tab PO PRN ×2 (01:05→19:45)
[2020-10-31] MEDS: FLUoxetine 20 MG Cap PO SCH (08:55)
[2020-10-31] MEDS: Potassium Chloride 10 MEQ Tab.ER PO SCH (08:55)
[2020-10-31] MEDS: Multivitamins with Iron/Calcium/Folic Acid/Minerals Tab PO SCH (08:55)
[2020-10-31] MEDS: Metoprolol Succinate 50 MG Tab.ER PO SCH (08:56)
[2020-10-31] MEDS: Magnesium Chloride 64 MG Tab.ER PO SCH ×2 (08:56→19:44)
[2020-10-31] MEDS: Docusate Sodium 100 MG Cap PO SCH ×2 (08:56→19:45)
[2020-10-31] MEDS: Cyanocobalamin (Vitamin B12) 1,000 MCG Tab PO SCH (08:56)
[2020-10-31] MEDS: [UNRECOGNIZED DRUG - OTHER] PO SCH ×2 (08:57→19:46)
[2020-10-31] MEDS: Miconazole 2% Top Powder 45 GM Container TOP SCH ×2 (08:57→19:46)
[2020-10-31] MEDS: Acetaminophen 325 MG Tab PO SCH ×3 (08:58→19:49)
[2020-10-31] MEDS: Lisinopril 10 MG Tab PO SCH (14:03)
[2020-10-31] MEDS: Iron Polysaccharides Complex 150 MG Cap PO SCH (14:04)
[2020-10-31] MEDS: Simvastatin 40 MG Tab PO SCH (19:44)
[2020-10-31] MEDS: traMADol 50 MG Tab PO PRN (21:52)
[2020-11-01 06:56] LABS: ANION GAP 8.3 mmol/L (5-15); CHLORIDE,CL 100 mmol/L (98-107); SODIUM,NA 139 mmol/L (136-145)
[2020-11-01] MEDS: [UNRECOGNIZED DRUG - OTHER] PO SCH ×2 (07:32→19:44)
[2020-11-01] MEDS: Acetaminophen 325 MG Tab PO SCH ×3 (07:32→19:42)
[2020-11-01] MEDS: Miconazole 2% Top Powder 45 GM Container TOP SCH ×2 (07:32→19:45)
[2020-11-01] MEDS: FLUoxetine 20 MG Cap PO SCH (07:33)
[2020-11-01] MEDS: Docusate Sodium 100 MG Cap PO SCH ×2 (07:33→19:45)
[2020-11-01] MEDS: Metoprolol Succinate 50 MG Tab.ER PO SCH (07:33)
[2020-11-01] MEDS: Lisinopril 10 MG Tab PO SCH (07:33)
[2020-11-01] MEDS: Magnesium Chloride 64 MG Tab.ER PO SCH ×2 (07:33→19:41)
[2020-11-01] MEDS: Cyanocobalamin (Vitamin B12) 1,000 MCG Tab PO SCH (07:33)
[2020-11-01] MEDS: traMADol 50 MG Tab PO PRN ×3 (07:34→22:41)
[2020-11-01] MEDS: Potassium Chloride 10 MEQ Tab.ER PO SCH (07:34)
[2020-11-01] MEDS: Multivitamins with Iron/Calcium/Folic Acid/Minerals Tab PO SCH (07:34)
[2020-11-01] MEDS ORDERED: Metoprolol Succinate 50 MG Tab.ER PO ONE (08:21)
[2020-11-01] MEDS: Iron Polysaccharides Complex 150 MG Cap PO SCH (12:33)
[2020-11-01] MEDS: Acetaminophen 325 MG Tab PO PRN (17:34)
--- NOTE | 2020-11-01 18:45 | PN ---
Progress Note for DARA SYLVESTER Date: 11/01/2020 Room #: VM.201 SUBJECTIVE: The patient is getting stronger. She is not sleeping well. She does have weakness still in her legs. It is noted that her blood pressure has not been yet at goal. OBJECTIVE: Vital Signs: Her pulse is 92, blood pressure is 167/82, sats are 91% on room air, respiratory rate 16. Heart: Regular rate and rhythm. Lungs: Clear. Abdomen: Soft. General: The patient is much more alert, pleasant to visit with, clear. LABORATORY DATA: Shows her hemoglobin was improved to 10.8, potassium stable at 4.3, creatinine 0.7, GFR greater than 60, glucose was 132, magnesium was low at 1.5. The patient's MRI the other day showed chronic small-vessel disease, but also left old frontal infarct. IMPRESSION: 1. Falls. 2. Rhabdomyolysis. 3. Cerebrovascular disease. 4. Hypoxemia, improved. 5. Hypokalemia, improved. 6. Hypomagnesemia, still present. 7. Chronic obstructive pulmonary disease. 8. Cognitive dysfunction, improving. 9. Insomnia. 10.Type 2 diabetes mellitus. 11.Hypertension. 12.Chronic depression. 13.Constipation. PLAN: We will increase her metoprolol to 150 mg daily. We will increase her magnesium supplements to 2 pills twice a day. We will continue the same potassium supplements. The patient will continue with physical therapy. Occupational therapy will soon be done with the patient, however, may request another cognitive evaluation on the patient. The patient has been able to get off oxygen, which is good. Anticipate hopefully being able to be discharged home next week. GM11/01/2020 08:40:02 MODL: 11/01/2020 18:37:35 /[id number]
[2020-11-01] MEDS: Melatonin 3 MG Tab PO SCH (19:41)
[2020-11-01] MEDS: Simvastatin 40 MG Tab PO SCH (19:42)
[2020-11-02] MEDS: Acetaminophen 325 MG Tab PO PRN ×2 (02:08→18:29)
[2020-11-02] MEDS: Acetaminophen 325 MG Tab PO SCH ×3 (07:35→20:46)
[2020-11-02] MEDS: FLUoxetine 20 MG Cap PO SCH (07:35)
[2020-11-02] MEDS: Docusate Sodium 100 MG Cap PO SCH ×2 (07:36→20:47)
[2020-11-02] MEDS: Metoprolol Succinate 50 MG Tab.ER PO SCH (07:36)
[2020-11-02] MEDS: Magnesium Chloride 64 MG Tab.ER PO SCH ×2 (07:36→20:45)
[2020-11-02] MEDS: Lisinopril 10 MG Tab PO SCH (07:37)
[2020-11-02] MEDS: Potassium Chloride 10 MEQ Tab.ER PO SCH (07:37)
[2020-11-02] MEDS: Multivitamins with Iron/Calcium/Folic Acid/Minerals Tab PO SCH (07:37)
[2020-11-02] MEDS: Miconazole 2% Top Powder 45 GM Container TOP SCH ×2 (07:37→20:47)
[2020-11-02] MEDS: [UNRECOGNIZED DRUG - OTHER] PO SCH ×2 (07:38→20:47)
[2020-11-02] MEDS: Cyanocobalamin (Vitamin B12) 1,000 MCG Tab PO SCH (07:39)
[2020-11-02] MEDS: traMADol 50 MG Tab PO PRN ×3 (07:39→20:49)
[2020-11-02] MEDS: Calcium Carbonate 750 MG Tab.Chew PO PRN (12:47)
[2020-11-02] MEDS: Iron Polysaccharides Complex 150 MG Cap PO SCH (12:47)
[2020-11-02] MEDS: Melatonin 3 MG Tab PO SCH (20:45)
[2020-11-02] MEDS: Simvastatin 40 MG Tab PO SCH (20:45)
[2020-11-03] MEDS: Acetaminophen 325 MG Tab PO PRN (02:27)
[2020-11-03] MEDS: traMADol 50 MG Tab PO PRN ×3 (04:23→17:33)
[2020-11-03] MEDS: Magnesium Chloride 64 MG Tab.ER PO SCH ×2 (07:47→20:03)
[2020-11-03] MEDS: Metoprolol Succinate 50 MG Tab.ER PO SCH (07:48)
[2020-11-03] MEDS: Calcium Carbonate 750 MG Tab.Chew PO PRN ×2 (07:50→11:42)
[2020-11-03] MEDS: Cyanocobalamin (Vitamin B12) 1,000 MCG Tab PO SCH (07:50)
[2020-11-03] MEDS: Potassium Chloride 10 MEQ Tab.ER PO SCH (07:50)
[2020-11-03] MEDS: Multivitamins with Iron/Calcium/Folic Acid/Minerals Tab PO SCH (07:50)
[2020-11-03] MEDS: Acetaminophen 325 MG Tab PO SCH ×3 (07:50→20:04)
[2020-11-03] MEDS: Lisinopril 10 MG Tab PO SCH (07:50)
[2020-11-03] MEDS: FLUoxetine 20 MG Cap PO SCH (07:50)
[2020-11-03] MEDS: Miconazole 2% Top Powder 45 GM Container TOP SCH ×2 (07:51→20:05)
[2020-11-03] MEDS: [UNRECOGNIZED DRUG - OTHER] PO SCH ×2 (07:51→20:05)
[2020-11-03] MEDS: Albuterol/Ipratropium 3.0-0.5 MG/3 ML Neb Soln NEB PRN (07:54)
[2020-11-03] MEDS: Docusate Sodium 100 MG Cap PO SCH ×2 (07:55→21:03)
[2020-11-03] MEDS: Iron Polysaccharides Complex 150 MG Cap PO SCH (11:41)
[2020-11-03] MEDS: Melatonin 3 MG Tab PO SCH (20:02)
[2020-11-03] MEDS: Simvastatin 40 MG Tab PO SCH (20:04)
[2020-11-04] MEDS: traMADol 50 MG Tab PO PRN ×3 (02:59→17:41)
[2020-11-04] MEDS: Acetaminophen 325 MG Tab PO SCH ×3 (07:39→19:29)
[2020-11-04] MEDS: FLUoxetine 20 MG Cap PO SCH (07:39)
[2020-11-04] MEDS: Metoprolol Succinate 50 MG Tab.ER PO SCH (07:40)
[2020-11-04] MEDS: Magnesium Chloride 64 MG Tab.ER PO SCH ×2 (07:40→19:28)
[2020-11-04] MEDS: Lisinopril 10 MG Tab PO SCH (07:40)
[2020-11-04] MEDS: Cyanocobalamin (Vitamin B12) 1,000 MCG Tab PO SCH (07:40)
[2020-11-04] MEDS: Potassium Chloride 10 MEQ Tab.ER PO SCH (07:41)
[2020-11-04] MEDS: Docusate Sodium 100 MG Cap PO SCH ×2 (07:41→19:31)
[2020-11-04] MEDS: Miconazole 2% Top Powder 45 GM Container TOP SCH ×2 (07:41→19:29)
[2020-11-04] MEDS: Calcium Carbonate 750 MG Tab.Chew PO PRN ×3 (07:41→17:42)
[2020-11-04] MEDS: Multivitamins with Iron/Calcium/Folic Acid/Minerals Tab PO SCH (07:41)
[2020-11-04] MEDS: [UNRECOGNIZED DRUG - OTHER] PO SCH ×2 (07:41→19:29)
[2020-11-04] MEDS: Iron Polysaccharides Complex 150 MG Cap PO SCH (11:44)
[2020-11-04] MEDS: Simvastatin 40 MG Tab PO SCH (19:28)
[2020-11-04] MEDS: Melatonin 3 MG Tab PO SCH (19:28)
[2020-11-05] MEDS: traMADol 50 MG Tab PO PRN ×3 (01:03→18:03)
[2020-11-05 06:55] LABS: CHLORIDE,CL 100 mmol/L (98-107); SODIUM,NA 138 mmol/L (136-145)
[2020-11-05 07:00] LABS: ANION GAP 10.3 mmol/L (5-15)
[2020-11-05] MEDS: [UNRECOGNIZED DRUG - OTHER] PO SCH ×2 (07:38→20:02)
[2020-11-05] MEDS: Calcium Carbonate 750 MG Tab.Chew PO PRN ×2 (07:39→18:03)
[2020-11-05] MEDS: Lisinopril 10 MG Tab PO SCH (07:39)
[2020-11-05] MEDS: FLUoxetine 20 MG Cap PO SCH (07:39)
[2020-11-05] MEDS: Metoprolol Succinate 50 MG Tab.ER PO SCH (07:39)
[2020-11-05] MEDS: Potassium Chloride 10 MEQ Tab.ER PO SCH (07:40)
[2020-11-05] MEDS: Cyanocobalamin (Vitamin B12) 1,000 MCG Tab PO SCH (07:40)
[2020-11-05] MEDS: Magnesium Chloride 64 MG Tab.ER PO SCH ×2 (07:40→21:10)
[2020-11-05] MEDS: Docusate Sodium 100 MG Cap PO SCH ×2 (07:40→20:24)
[2020-11-05] MEDS: Multivitamins with Iron/Calcium/Folic Acid/Minerals Tab PO SCH (07:40)
[2020-11-05] MEDS: Acetaminophen 325 MG Tab PO SCH ×3 (07:40→20:03)
[2020-11-05] MEDS: Miconazole 2% Top Powder 45 GM Container TOP SCH ×2 (07:42→20:02)
[2020-11-05] MEDS ORDERED: atorvaSTATin 10 MG Tab PO ONE (08:19)
[2020-11-05] MEDS: amLODIPine 5 MG Tab PO SCH (08:59)
--- NOTE | 2020-11-05 09:13 | PN ---
Progress Note for DARA SYLVESTER Date: 11/05/2020 Room #: VM.201 SUBJECTIVE: The patient is still progressing slowly on swing bed with recovery after her fall with rhabdomyolysis and noted pontine stroke which most likely was old. The patient is having weakness of her 1 leg. She is not needing oxygen right now. Her blood pressure still has been hard to control with being elevated. The patient's mood has been more alert, but yet somewhat flat. She does not yet feel stable to go home and she has not yet met her goals. OBJECTIVE: Vital Signs: Her temperature is 36.4, pulse 78, blood pressure is 171/75, sats were 91% on room air. Skin: Stollings, warm, and dry. She has scabs still on her knees and elbows that are healing up. Heart: Regular rate and rhythm. Lungs: Clear to auscultation. Abdomen: Soft. Lower Extremities: No edema. LABORATORY DATA: Today shows that her hemoglobin is stable at 10.7, white blood cell count 5.5, platelets are 414. Sodium is 138, potassium stable at 4.3, creatinine 0.6, GFR is greater than 60. Magnesium low at 1.6. LFTs are normal. Albumin is 2.6, which is up from 2.4. IMPRESSION: 1. Falls. 2. Rhabdomyolysis. 3. Weakness. 4. Cerebrovascular disease. 5. Hypoxemia, improved. 6. Hypokalemia, improved. 7. Hypomagnesemia, slightly improved. 8. Chronic obstructive pulmonary disease. 9. Cognitive dysfunction, improved. 10.Insomnia. 11.Type 2 diabetes mellitus. 12.Hypertension, not yet controlled. 13.Chronic depression. 14.Constipation. PLAN: We will add amlodipine on board for blood pressure control. With doing that, we will need to stop her simvastatin and switch her to atorvastatin. We will continue the iron supplementation for anemia. She is to continue with physical therapy. She is to continue with topical wound cares for her abrasions. The patient is not yet stable to be discharged home. She will continue to work with Physical Therapy. GM11/05/2020 08:37:58 MODL: 11/05/2020 09:01:45 /[id number]
[2020-11-05] MEDS: Iron Polysaccharides Complex 150 MG Cap PO SCH (11:37)
[2020-11-05] MEDS: Melatonin 3 MG Tab PO SCH (20:03)
[2020-11-06] MEDS: traMADol 50 MG Tab PO PRN ×3 (03:35→18:43)
[2020-11-06] MEDS: Metoprolol Succinate 50 MG Tab.ER PO SCH (08:26)
[2020-11-06] MEDS: Acetaminophen 325 MG Tab PO SCH ×3 (08:27→19:36)
[2020-11-06] MEDS: Lisinopril 10 MG Tab PO SCH (08:27)
[2020-11-06] MEDS: Potassium Chloride 10 MEQ Tab.ER PO SCH (08:29)
[2020-11-06] MEDS: amLODIPine 5 MG Tab PO SCH (08:29)
[2020-11-06] MEDS: Cyanocobalamin (Vitamin B12) 1,000 MCG Tab PO SCH (08:29)
[2020-11-06] MEDS: FLUoxetine 20 MG Cap PO SCH (08:30)
[2020-11-06] MEDS: Multivitamins with Iron/Calcium/Folic Acid/Minerals Tab PO SCH (08:30)
[2020-11-06] MEDS: Docusate Sodium 100 MG Cap PO SCH ×2 (08:30→19:37)
[2020-11-06] MEDS: Magnesium Chloride 64 MG Tab.ER PO SCH ×2 (08:30→19:36)
[2020-11-06] MEDS: [UNRECOGNIZED DRUG - OTHER] PO SCH ×2 (08:31→23:22)
[2020-11-06] MEDS: Miconazole 2% Top Powder 45 GM Container TOP SCH ×2 (08:31→22:52)
[2020-11-06] MEDS: Iron Polysaccharides Complex 150 MG Cap PO SCH (11:38)
[2020-11-06] MEDS: Calcium Carbonate 750 MG Tab.Chew PO PRN (11:39)
[2020-11-06] MEDS: Ondansetron 4 MG Tab.DIS PO PRN (11:42)
[2020-11-06] MEDS: Melatonin 3 MG Tab PO SCH (19:36)
[2020-11-07] MEDS: traMADol 50 MG Tab PO PRN ×3 (03:20→23:51)
[2020-11-07] MEDS: Ondansetron 4 MG Tab.DIS PO PRN (08:18)
[2020-11-07] MEDS: Acetaminophen 325 MG Tab PO SCH ×3 (08:19→19:57)
[2020-11-07] MEDS: Lisinopril 10 MG Tab PO SCH (08:20)
[2020-11-07] MEDS: Docusate Sodium 100 MG Cap PO SCH ×2 (08:20→19:57)
[2020-11-07] MEDS: Magnesium Chloride 64 MG Tab.ER PO SCH ×2 (08:21→19:57)
[2020-11-07] MEDS: Metoprolol Succinate 50 MG Tab.ER PO SCH (08:22)
[2020-11-07] MEDS: Potassium Chloride 10 MEQ Tab.ER PO SCH (08:23)
[2020-11-07] MEDS: amLODIPine 5 MG Tab PO SCH (08:23)
[2020-11-07] MEDS: FLUoxetine 20 MG Cap PO SCH (08:23)
[2020-11-07] MEDS: Multivitamins with Iron/Calcium/Folic Acid/Minerals Tab PO SCH (08:23)
[2020-11-07] MEDS: Cyanocobalamin (Vitamin B12) 1,000 MCG Tab PO SCH (08:23)
[2020-11-07] MEDS: [UNRECOGNIZED DRUG - OTHER] PO SCH ×3 (08:24→20:00)
[2020-11-07] MEDS: Miconazole 2% Top Powder 45 GM Container TOP SCH ×2 (08:24→19:59)
--- NOTE | 2020-11-07 08:55 | PN ---
Progress Note for DARA SYLVESTER Date: 11/07/2020 Room #: VM.201 SUBJECTIVE: Concerned for left elbow. The patient's abrasion on her left elbow has been slow to heal and has had some drainage. Nursing was concerned about erythema. The patient does not complain about pain at the area. OT has noted the patient has been noted to be forgetful and not safe to be at home and would need assisted living. OBJECTIVE: Vital Signs: Her temperature is 36.6, blood pressure is 142/73, respiratory rate 17, sats are 90% on room air. Extremities: Objectively, her left elbow was dressed with a porous bandage. There is serosanguineous drainage. There is no erythema. There is a scab still present on the area. Not concerned for cellulitis. The skin is not blanching. She has full range of motion of her elbow. Neurologic: To note, the patient is somewhat forgetful. IMPRESSION: 1. Rhabdomyolysis. 2. Cerebrovascular disease. 3. Left elbow abrasion. 4. Weakness. 5. Hypertension. 6. Chronic obstructive pulmonary disease. PLAN: We will try to change the type of dressing to allow more drainage come out of the elbow. I do not feel she warrants antibiotics for this. She will meet with Apartment Maintenance Manager to help with discharge planning. GM11/07/2020 08:08:22 MODL: 11/07/2020 08:45:40 /[id number] LI
[2020-11-07] MEDS: Iron Polysaccharides Complex 150 MG Cap PO SCH (11:41)
[2020-11-07] MEDS: Melatonin 3 MG Tab PO SCH (19:57)
[2020-11-08 07:24] LABS: CHLORIDE,CL 99 mmol/L (98-107); SODIUM,NA 138 mmol/L (136-145)
[2020-11-08 07:28] LABS: ANION GAP 11.5 mmol/L (5-15)
[2020-11-08] MEDS: Miconazole 2% Top Powder 45 GM Container TOP SCH ×2 (07:52→20:08)
[2020-11-08] MEDS: [UNRECOGNIZED DRUG - OTHER] PO SCH ×2 (07:52→20:03)
[2020-11-08] MEDS: Cyanocobalamin (Vitamin B12) 1,000 MCG Tab PO SCH (07:53)
[2020-11-08] MEDS: Potassium Chloride 10 MEQ Tab.ER PO SCH (07:53)
[2020-11-08] MEDS: Docusate Sodium 100 MG Cap PO SCH ×2 (07:53→20:04)
[2020-11-08] MEDS: Magnesium Chloride 64 MG Tab.ER PO SCH ×2 (07:53→20:04)
[2020-11-08] MEDS: Acetaminophen 325 MG Tab PO SCH ×3 (07:53→20:55)
[2020-11-08] MEDS: Metoprolol Succinate 50 MG Tab.ER PO SCH (07:53)
[2020-11-08] MEDS: Multivitamins with Iron/Calcium/Folic Acid/Minerals Tab PO SCH (07:53)
[2020-11-08] MEDS: FLUoxetine 20 MG Cap PO SCH (07:54)
[2020-11-08] MEDS: Lisinopril 10 MG Tab PO SCH (07:54)
[2020-11-08] MEDS: amLODIPine 5 MG Tab PO SCH (07:54)
[2020-11-08] MEDS: traMADol 50 MG Tab PO PRN ×2 (07:55→17:44)
[2020-11-08] MEDS: Iron Polysaccharides Complex 150 MG Cap PO SCH (11:43)
[2020-11-08] MEDS ORDERED: Albuterol 0.083% 2.5 MG/3 ML Neb Soln INH PRN (12:37)
[2020-11-08] MEDS ORDERED: Albuterol HFA 18 Gm Inhaler INH PRN (17:35)
[2020-11-08] MEDS: Melatonin 3 MG Tab PO SCH (20:04)
[2020-11-09] MEDS: traMADol 50 MG Tab PO PRN ×2 (01:44→08:06)
[2020-11-09 05:16] VITALS: BP 133/59; PULSE 83
[2020-11-09] MEDS: [UNRECOGNIZED DRUG - OTHER] PO SCH (08:02)
[2020-11-09] MEDS: Acetaminophen 325 MG Tab PO SCH ×2 (08:02→12:59)
[2020-11-09] MEDS: Docusate Sodium 100 MG Cap PO SCH (08:03)
[2020-11-09] MEDS: FLUoxetine 20 MG Cap PO SCH (08:03)
[2020-11-09] MEDS: Multivitamins with Iron/Calcium/Folic Acid/Minerals Tab PO SCH (08:04)
[2020-11-09] MEDS: Ondansetron 4 MG Tab.DIS PO PRN (08:04)
[2020-11-09] MEDS: Lisinopril 10 MG Tab PO SCH (08:04)
[2020-11-09] MEDS: Cyanocobalamin (Vitamin B12) 1,000 MCG Tab PO SCH (08:05)
[2020-11-09] MEDS: amLODIPine 5 MG Tab PO SCH (08:05)
[2020-11-09] MEDS: Metoprolol Succinate 50 MG Tab.ER PO SCH (08:05)
[2020-11-09] MEDS: Miconazole 2% Top Powder 45 GM Container TOP SCH (08:06)
[2020-11-09] MEDS: Magnesium Chloride 64 MG Tab.ER PO SCH (09:06)
--- NOTE | 2020-11-09 11:12 | DISCH ---
PRIMARY DIAGNOSES: 1. Rhabdomyolysis. 2. Acute multiple bilateral rib fractures. 3. Fall. 4. Cerebrovascular disease with left frontal lesion noted, which was new. 5. Dehydration. 6. Hypokalemia. 7. Hypomagnesemia. 8. Hypoxemia, improved. 9. Chronic obstructive pulmonary disease. 10.Hypertension. 11.Type 2 diabetes mellitus. 12.Cognitive dysfunction. 13.Chronic depression. 14.Left elbow skin abrasion. SUMMARY OF ADMIT HISTORY AND PHYSICAL: The patient was admitted to acute care on 10/20/2020 after having fallen at home, laid on the floor a few days, unclear as to how many exact days, was found by family, who went to check on her. She was found to have dehydration, rhabdomyolysis, acute kidney injury, as well as bilateral rib fractures. While on therapy, she received IV hydration. She had her diabetic meds held and her blood pressure meds held that would be kidney sensitive; however, they were able to be resumed. She was placed on swing bed for further strengthening. While on swing bed, she had progressed with therapy. She did require oxygen for a while, but was able to be weaned off it. She was placed on p.r.n. nebs. Her blood pressure was hard to control, so she had higher doses of lisinopril done, and then amlodipine was added which did seem to help quite a bit for her blood pressure control. Potassium and magnesium were replaced orally. The patient did have local cares to elbow abrasion. She received OT and PT for strengthening. It was felt that she was not safe to live home alone anymore as she did have still some cognitive dysfunction and did require assistance with some cares. MEDICATIONS AT DISCHARGE: Will be Tylenol 650 q.4 hours p.r.n., Tylenol 650 scheduled t.i.d., albuterol MDI 2 puffs q.4 hours p.r.n., Norvasc 5 mg 1 pill daily, Lipitor 20 mg 1 pill at bedtime, calcium, Tums 1500 q.2 hours p.r.n., vitamin B12 1,000 mcg 1 pill daily, docusate 100 mg 1 pill twice a day, Prozac 40 mg daily, lisinopril 30 mg daily, magnesium 128 mg b.i.d., melatonin 3 mg at bedtime, metformin 850 one pill twice a day, metoprolol XL 150 mg daily, miconazole 1 g topical b.i.d. to umbilical area p.r.n., multivitamin Thera M Plus 1 pill daily, Biotene dry mouth 1 dose b.i.d., Ferrex 150 mg 1 pill daily, Ultram 50 mg q.i.d. p.r.n. The patient is do not resuscitate at the time of discharge. The patient will hopefully be placed in Assisted Living soon per family's request. If not, the patient will need to have blood work in 2 weeks of CBC, comprehensive metabolic profile, as well as magnesium level. over 30 minutes of time was spent doing this discharge. She will need to have dressing changes to her elbow. GM11/09/2020 08:13:51 MODL: 11/09/2020 10:56:17 /[id number] MTDD
[2020-11-09] MEDS: Iron Polysaccharides Complex 150 MG Cap PO SCH (12:59)
[2020-11-09] MEDS ORDERED: atorvaSTATin 10 MG Tab PO ONE (16:52)
== END 2020-11-09 15:00 | DRG 948 ==
LOC: VM.MS 10:08
PROVIDERS: ADMIT Family Medicine; ATTEND Family Medicine
DX: R53.81 Other malaise (principal); M62.82 Rhabdomyolysis; S22.43XD Multiple fractures of ribs, bilateral, subsequent encounter for fracture with routine healing; E86.0 Dehydration; E87.6 Hypokalemia; E83.42 Hypomagnesemia; J44.9 Chronic obstructive pulmonary disease, unspecified; I10 Essential (primary) hypertension; F32.9 Major depressive disorder, single episode, unspecified; I67.9 Cerebrovascular disease, unspecified; S50.312D Abrasion of left elbow, subsequent encounter; G31.84 Mild cognitive impairment of uncertain or unknown etiology; Z66 Do not resuscitate; F41.9 Anxiety disorder, unspecified; L89.151 Pressure ulcer of sacral region, stage 1; E11.622 Type 2 diabetes mellitus with other skin ulcer; W10.8XXD Fall (on) (from) other stairs and steps, subsequent encounter; E78.5 Hyperlipidemia, unspecified; R09.02 Hypoxemia; D64.9 Anemia, unspecified; Z20.822 Contact with and (suspected) exposure to COVID-19; E78.00 Pure hypercholesterolemia, unspecified; H54.7 Unspecified visual loss; M81.0 Age-related osteoporosis without current pathological fracture; E66.9 Obesity, unspecified; E55.9 Vitamin D deficiency, unspecified; E11.42 Type 2 diabetes mellitus with diabetic polyneuropathy; Z79.84 Long term (current) use of oral hypoglycemic drugs; Z79.899 Other long term (current) drug therapy; Z87.891 Personal history of nicotine dependence; Z68.26 Body mass index [BMI] 26.0-26.9, adult
CPT/HCPCS: 36415; 70551; 80048; 80053; 82728; 82962; 83540; 83550; 83735; 85025; 85027; 92610-GN; 94640; 94760; 97110-GP; 97116-GP; 97129-GO; 97130-GO; 97530-GP; 97535-GO; A9270-GY; J1650; J7620-GY; U0002